=== PATIENT | male | born 1970 | race Caucasian/White ===

== ENCOUNTER → 2018-09-06 14:12 | Outpatient (CLI) | payer BC, SELFPAY ==
[2018-09-06 14:19] LABS: Basophils % 0.4 % (0.1-2.0); Eosinophils # 0.2 K/mm3 (0.0-0.4); Eosinophils % 2.5 % (0.1-12.0); Hemoglobin 17.1 g/dL (14.1-18.0); Lymphocytes # 1.7 K/mm3 (0.7-4.5); Lymphocytes % 21.9 % (10-50); Mean Corpuscular HGB Conc 34.2 g/dL (31.8-35.4); Mean Corpuscular Hemoglobin 31.9 pg (27.0-31.2); Mean Corpuscular Volume 93.3 fl (80-94); Mean Platelet Volume 7.7 fl (7.4-10.4); Monocytes # 0.3 K/mm3 (0.1-1.0); Monocytes % 4.4 % (1.7-9.3); Neutrophils # 5.6 K/mm3 (1.8-7.8); Neutrophils % 70.9 % (37.0-80.0); Platelet Count 361 K/mm3 (142-424); Red Blood Count 5.37 M/mm3 (4.60-6.20); White Blood Count 7.9 K/mm3 (4.8-10.8)
[2018-09-06 15:32] LABS: Alanine Aminotransferase 19 U/L (12-78); Albumin Level 3.9 gm/dL (3.4-5.0); Albumin/Globulin Ratio 1.1 (1.1-1.8); Alkaline Phosphatase 162 U/L (46-116); Anion Gap 18.7 mEq/L (5-15); Aspartate Amino Transferase 15 U/L (15-37); Bilirubin,Total 0.3 mg/dL (0.2-1.0); Blood Urea Nitrogen 11 mg/dL (7-18); Calcium 9.5 mg/dL (8.5-10.1); Carbon Dioxide 24 mmol/L (21.0-32.0); Chloride 103 mmol/L (98-107); Chol/HDL Ratio 4.1 (1-3.5); Cholesterol 152 mg/dL (140-200); Creatinine,Serum 0.83 mg/dL (0.70-1.30); Estimated Glomerular Filt Rate 98 ml/min (>60); Free T4 (Free Thyroxine) 1.01 ng/dl (0.76-1.46); GFR (African American) 119 ML/MIN (>60); Globulin 3.4 gm/dl (1.3-3.2); Glucose 84 mg/dL (74-106); HDL Cholesterol 37 mg/dL (27-67); LDL Cholesterol 99 mg/dL (0-130); Potassium 4.7 mmoL/L (3.5-5.1); Sodium 141 mmol/L (136-145); Thyroid Stimulating Hormone 1.03 uIU/ml (0.358-3.740); Total Protein,Serum 7.3 gm/dL (6.4-8.2); Triglycerides 78 mg/dL (30-200); VLDL Cholesterol 16 mg/dL (0-40)
== END ==
PROVIDERS: Visit Provider Emergency Medicine
DX: R53.83 Other fatigue (principal); Z72.0 Tobacco use
CPT/HCPCS: 80053; 80061; 82652; 84439; 84443; 85025

== ENCOUNTER → 2019-01-10 13:26 | Outpatient (CLI) | payer BC, SELFPAY ==
[2019-01-10 14:26] LABS: Basophils % 0.4 % (0.1-2.0); Eosinophils # 0.3 K/mm3 (0.0-0.4); Eosinophils % 4.2 % (0.1-12.0); Hematocrit 51.3 % (42.0-52.0); Hemoglobin 16.5 g/dL (14.1-18.0); Lymphocytes # 1.7 K/mm3 (0.7-4.5); Mean Corpuscular HGB Conc 32.2 g/dL (31.8-35.4); Mean Corpuscular Volume 96.5 fl (80-94); Mean Platelet Volume 7.9 fl (7.4-10.4); Monocytes # 0.3 K/mm3 (0.1-1.0); Monocytes % 4.8 % (1.7-9.3); Neutrophils # 3.9 K/mm3 (1.8-7.8); Neutrophils % 63.5 % (37.0-80.0); Platelet Count 325 K/mm3 (142-424); Red Blood Count 5.31 M/mm3 (4.60-6.20); Red Cell Distribution Width 13.2 % (11.5-17.5); White Blood Count 6.2 K/mm3 (4.8-10.8)
[2019-01-10 14:34] LABS: Alanine Aminotransferase 22 U/L (12-78); Albumin Level 3.7 gm/dL (3.4-5.0); Albumin/Globulin Ratio 1.2 (1.1-1.8); Alkaline Phosphatase 148 U/L (46-116); Anion Gap 14.1 mEq/L (5-15); Aspartate Amino Transferase 15 U/L (15-37); Bilirubin,Total 0.4 mg/dL (0.2-1.0); Blood Urea Nitrogen 14 mg/dL (7-18); Calcium 9.1 mg/dL (8.5-10.1); Carbon Dioxide 24 mmol/L (21.0-32.0); Chloride 103 mmol/L (98-107); Chol/HDL Ratio 4.2 (1-3.5); Cholesterol 160 mg/dL (140-200); Creatinine,Serum 0.83 mg/dL (0.70-1.30); Estimated Glomerular Filt Rate 98 ml/min (>60); GFR (African American) 119 ML/MIN (>60); Globulin 3.1 gm/dl (1.3-3.2); Glucose 89 mg/dL (74-106); HDL Cholesterol 38 mg/dL (27-67); LDL Cholesterol 102 mg/dL (0-130); Potassium 4.1 mmoL/L (3.5-5.1); Sodium 137 mmol/L (136-145); T4 (Thyroxine) 7.9 ug/dl (4.7-13.3); Thyroid Stimulating Hormone 1.18 uIU/ml (0.358-3.740); Total Protein,Serum 6.8 gm/dL (6.4-8.2); Triglycerides 101 mg/dL (30-200); VLDL Cholesterol 20 mg/dL (0-40)
== END ==
PROVIDERS: Visit Provider Physician Assistant
DX: I10 Essential (primary) hypertension (principal); E55.9 Vitamin D deficiency, unspecified; J44.9 Chronic obstructive pulmonary disease, unspecified
CPT/HCPCS: 80053; 80061; 82652; 84436; 84443; 85025

== ENCOUNTER → 2019-01-14 13:34 | Outpatient (CLI) | payer BC, SELFPAY ==
[2019-01-14 14:45] VITALS: PULSE 63; PULSE 64
== END ==
PROVIDERS: PCP Emergency Medicine; Visit Provider Physician Assistant
DX: J44.9 Chronic obstructive pulmonary disease, unspecified (principal)
CPT/HCPCS: 94060; 94618; 94640; 94726; 94729

== ENCOUNTER → 2019-07-06 13:31 | Outpatient (CLI) | payer BC, SELFPAY ==
[2019-07-06 14:56] LABS: Basophils % 0.3 % (0.1-2.0); Eosinophils # 0.2 K/mm3 (0.0-0.4); Eosinophils % 2.4 % (0.1-12.0); Hematocrit 50.4 % (42.0-52.0); Hemoglobin 16.4 g/dL (14.1-18.0); Lymphocytes # 1.8 K/mm3 (0.7-4.5); Lymphocytes % 29.8 % (10-50); Mean Corpuscular HGB Conc 32.6 g/dL (31.8-35.4); Mean Corpuscular Hemoglobin 30.9 pg (27.0-31.2); Mean Corpuscular Volume 94.7 fl (80-94); Mean Platelet Volume 8.8 fl (7.4-10.4); Monocytes # 0.3 K/mm3 (0.1-1.0); Monocytes % 4.9 % (1.7-9.3); Neutrophils # 3.8 K/mm3 (1.8-7.8); Neutrophils % 62.6 % (37.0-80.0); Platelet Count 328 K/mm3 (142-424); Red Blood Count 5.32 M/mm3 (4.60-6.20); Red Cell Distribution Width 13.4 % (11.5-17.5)
[2019-07-06 15:47] LABS: Alanine Aminotransferase 14 U/L (12-78); Albumin Level 4.2 gm/dL (3.4-5.0); Albumin/Globulin Ratio 1.5 (1.1-1.8); Alkaline Phosphatase 134 U/L (46-116); Anion Gap 16.5 mEq/L (5-15); Aspartate Amino Transferase 12 U/L (15-37); Bilirubin,Total 0.6 mg/dL (0.2-1.0); Blood Urea Nitrogen 11 mg/dL (7-18); Calcium 9.4 mg/dL (8.5-10.1); Carbon Dioxide 23 mmol/L (21.0-32.0); Chloride 104 mmol/L (98-107); Cholesterol 176 mg/dL (140-200); Creatinine,Serum 0.86 mg/dL (0.70-1.30); Estimated Glomerular Filt Rate 94 ml/min (>60); GFR (African American) 113 ML/MIN (>60); Globulin 2.8 gm/dl (1.3-3.2); Glucose 90 mg/dL (74-106); HDL Cholesterol 44 mg/dL (27-67); LDL Cholesterol 119 mg/dL (0-130); Potassium 4.5 mmoL/L (3.5-5.1); Sodium 139 mmol/L (136-145); T4 (Thyroxine) 9.5 ug/dl (4.7-13.3); Thyroid Stimulating Hormone 1.09 uIU/ml (0.358-3.740); Triglycerides 65 mg/dL (30-200); VLDL Cholesterol 13 mg/dL (0-40)
[2019-07-08 06:28] LABS: Vitamin D 25 Hydroxy 50.2 ng/mL (30.0-100.0)
== END ==
PROVIDERS: Visit Provider Physician Assistant
DX: I10 Essential (primary) hypertension (principal); E55.9 Vitamin D deficiency, unspecified
CPT/HCPCS: 80053; 80061; 82652; 84436; 84443; 85025

== ENCOUNTER → 2020-03-30 16:40 | Outpatient (CLI) | payer BC, SELFPAY ==
[2020-03-30 16:54] LABS: Basophils % 0.7 % (0.1-2.0); Eosinophils # 0.2 K/mm3 (0.0-0.4); Eosinophils % 2.9 % (0.1-12.0); Hematocrit 49.5 % (42.0-52.0); Hemoglobin 16.5 g/dL (14.1-18.0); Lymphocytes # 1.6 K/mm3 (0.7-4.5); Lymphocytes % 26.6 % (10-50); Mean Corpuscular HGB Conc 33.2 g/dL (31.8-35.4); Mean Corpuscular Hemoglobin 32.1 pg (27.0-31.2); Mean Corpuscular Volume 96.6 fl (80-94); Mean Platelet Volume 8.4 fl (7.4-10.4); Monocytes # 0.3 K/mm3 (0.1-1.0); Monocytes % 5.2 % (1.7-9.3); Neutrophils # 3.8 K/mm3 (1.8-7.8); Neutrophils % 64.5 % (37.0-80.0); Platelet Count 297 K/mm3 (142-424); Red Blood Count 5.13 M/mm3 (4.60-6.20); Red Cell Distribution Width 12.6 % (11.5-17.5); White Blood Count 5.9 K/mm3 (4.8-10.8)
[2020-03-30 17:53] LABS: Chloride 104 mmol/L (98-107)
[2020-03-30 17:54] LABS: Potassium 4.4 mmoL/L (3.5-5.1); Sodium 138 mmol/L (136-145)
[2020-03-30 17:57] LABS: Calcium 9.9 mg/dl (8.4-10.2); Chol/HDL Ratio 3.5 (1-3.5); Cholesterol 159 mg/dl (140-200); Glucose 99 mg/dl (74-100); HDL Cholesterol 46 mg/dl (40-60); Triglycerides 54 mg/dl (30-150); VLDL Cholesterol 11 mg/dL (0-40)
[2020-03-30 18:10] LABS: Direct LDL Cholesterol 108.44 mg/dL (100-129)
[2020-03-30 18:14] LABS: 25-OH Vitamin D, Total 66.4 ng/mL (30-100); Free T4 (Free Thyroxine) 1.21 ng/dl (0.78-2.19)
[2020-03-30 18:28] LABS: Thyroid Stimulating Hormone 0.89 uIU/mL (0.465-4.68)
[2020-03-30 19:28] LABS: Alanine Aminotransferase 18 U/L (12-78); Albumin Level 4.4 g/dl (3.5-5.0); Albumin/Globulin Ratio 1.6 (1.1-1.8); Alkaline Phosphatase 147 U/L (38-126); Anion Gap 11.4 mEq/L (5-15); Aspartate Amino Transferase 47 U/L (17-59); Bilirubin,Total 0.6 mg/dl (0.2-1.3); Blood Urea Nitrogen 15 mg/dl (9-20); Carbon Dioxide 27 mmol/L (22.0-30.0); Estimated Glomerular Filt Rate 102 ml/min (>60); GFR (African American) 123 ML/MIN (>60); Globulin 2.8 g/dL (1.3-3.2); Total Protein,Serum 7.2 g/dl (6.3-8.2)
== END ==
PROVIDERS: Visit Provider Emergency Medicine
DX: I10 Essential (primary) hypertension (principal); E55.9 Vitamin D deficiency, unspecified; Z79.899 Other long term (current) drug therapy; Z12.5 Encounter for screening for malignant neoplasm of prostate
CPT/HCPCS: 80053; 80061; 82306; 84439; 84443; 85025; G0103

== ENCOUNTER → 2020-11-27 14:13 | Outpatient (CLI) | payer BC, SELFPAY ==
[2020-11-27 14:20] LABS: Basophils % 0.6 % (0.1-2.0); Eosinophils # 0.1 K/mm3 (0.0-0.4); Eosinophils % 2.2 % (0.1-12.0); Hematocrit 49.4 % (42.0-52.0); Lymphocytes # 1.6 K/mm3 (0.7-4.5); Lymphocytes % 29.9 % (10-50); Mean Corpuscular HGB Conc 34.5 g/dL (31.8-35.4); Mean Corpuscular Hemoglobin 32.1 pg (27.0-31.2); Mean Platelet Volume 8.7 fl (7.4-10.4); Monocytes # 0.3 K/mm3 (0.1-1.0); Monocytes % 5.3 % (1.7-9.3); Neutrophils # 3.4 K/mm3 (1.8-7.8); Neutrophils % 62.1 % (37.0-80.0); Platelet Count 248 K/mm3 (142-424); Red Blood Count 5.31 M/mm3 (4.60-6.20); White Blood Count 5.5 K/mm3 (4.8-10.8)
[2020-11-27 15:32] LABS: Chloride 104 mmol/L (98-107); Sodium 137 mmol/L (136-145)
[2020-11-27 15:33] LABS: Potassium 4.4 mmoL/L (3.5-5.1)
[2020-11-27 15:35] LABS: Alanine Aminotransferase 17 U/L (12-78); Albumin Level 4.7 g/dl (3.5-5.0); Albumin/Globulin Ratio 1.7 (1.1-1.8); Alkaline Phosphatase 143 U/L (38-126); Anion Gap 14.4 mEq/L (5-15); Aspartate Amino Transferase 25 U/L (17-59); Bilirubin,Total 0.7 mg/dl (0.2-1.3); Blood Urea Nitrogen 11 mg/dl (9-20); Carbon Dioxide 23 mmol/L (22.0-30.0); Cholesterol 168 mg/dl (140-200); Estimated Glomerular Filt Rate 102 ml/min (>60); GFR (African American) 123 ML/MIN (>60); Globulin 2.8 g/dL (1.3-3.2); Total Protein,Serum 7.5 g/dl (6.3-8.2); Triglycerides 112 mg/dl (30-150); VLDL Cholesterol 22 mg/dL (0-40)
[2020-11-27 15:36] LABS: Calcium 9.5 mg/dl (8.4-10.2); Chol/HDL Ratio 3.8 (1-3.5); Glucose 112 mg/dl (74-100); HDL Cholesterol 44 mg/dl (40-60)
[2020-11-27 15:49] LABS: Direct LDL Cholesterol 112.58 mg/dL (100-129)
[2020-11-27 15:53] LABS: 25-OH Vitamin D, Total 31.6 ng/mL (30-100); T4 (Thyroxine) 8.9 ug/dl (5.53-11.0)
[2020-11-27 16:06] LABS: Thyroid Stimulating Hormone 1.04 uIU/mL (0.465-4.68)
== END ==
PROVIDERS: Visit Provider Emergency Medicine
DX: I10 Essential (primary) hypertension (principal); E55.9 Vitamin D deficiency, unspecified; E56.9 Vitamin deficiency, unspecified; Z79.899 Other long term (current) drug therapy
CPT/HCPCS: 80053; 80061; 82306; 84436; 84443; 85025

== ENCOUNTER → 2021-06-03 14:37 | Outpatient (CLI) | payer BC, SELFPAY ==
[2021-06-03 16:12] LABS: Coronavirus 19, PCR Not Detected (NotDetected); Influenza A, PCR Not Detected (NotDetected); Influenza B, PCR Not Detected (NotDetected)
== END ==
PROVIDERS: Visit Provider Emergency Medicine
DX: Z20.822 Contact with and (suspected) exposure to COVID-19 (principal); R05.9 Cough, unspecified; R09.89 Other specified symptoms and signs involving the circulatory and respiratory systems
CPT/HCPCS: C9803; U0003; U0005

== ENCOUNTER → 2021-06-11 10:42 | Outpatient (CLI) | payer BC, SELFPAY ==
--- NOTE | 2021-06-11 10:47 | XR_ITS ---
PROCEDURE: XR CHEST 2V CLINICAL HISTORY: COPD /shortness of breath COMPARISON: No exams were available for comparison FINDINGS: The cardiomediastinal silhouette and pulmonary vascularity are within normal limits. COPD changes. Old granulomatous disease. No lobar consolidation or collapse. No acute bony abnormalities. IMPRESSION: COPD. No acute finding Dictated by: Mart Flores MD 06/11/2021 14:04 Mart Flores MD in OV 06/11/2021 14:04
== END ==
PROVIDERS: PCP Emergency Medicine; Visit Provider Emergency Medicine
DX: J44.9 Chronic obstructive pulmonary disease, unspecified (principal)
CPT/HCPCS: 71046

== ENCOUNTER 2021-06-15 11:37 | Emergency (ER) | payer BC, SELFPAY ==
[2021-06-15 12:42] VITALS: BP 122/79; PULSE 79; RESP 18; TEMP 36.6; O2SAT 95; BMI 24.2
--- NOTE | 2021-06-15 13:38 | HMH.EDUTC ---
[facility] [place] Disposition Clinical Impression: COPD exacerbation Disposition: Home, Self-Care Condition on Discharge: Good Instructions: Chronic Obstructive Pulmonary Disease Additional Instructions: Drink plenty of fluids. Take tylenol or ibuprofen for pain or fever. Take the medications as directed. Follow up with your regular doctor. GO TO THE ER FOR ANY WORSENING SYMPTOMS Don't start the oral steroids until tomorrow, since you had the shot here today. The cough medication (promethazine dm) will make you drowsy, so don't drive or operate heavy machinery after taking it. Prescriptions: Promethazine/Dextromethorphan [Promethazine-Dm Syrup] 5 ml PO Q6HP PRN #240 ml PRN Reason: Cough Transmission Status: Received by [facility] Ondansetron [Zofran 4mg ODT] 4 mg PO Q8HP PRN #20 tab PRN Reason: Nausea Transmission Status: Received by [email or web address] Amoxicillin/Potassium Clav [Augmentin 875-125 Tablet] 1 tab PO Q12H 10 Days #20 tab Transmission Status: Received by [facility] Referrals: Marco Antonio Santamaria MD [Primary Care Provider] - Time of Disposition: 14:18 Medical Decision Making - Medical Records Medical records reviewed: No: I reviewed the patient's medical records. - Sánchez Inquiry Pt receiving controlled substance: No Vital Signs: 06/15/21 12:42 06/15/21 13:59 Temperature 97.8 F 97.8 F Temperature Source Oral Pulse Rate 79 Pulse Rate [Left] 79 Respiratory Rate 18 18 Blood Pressure 122/79 Blood Pressure [Right Arm] 122/79 Blood Pressure Mean [Right Arm] 93 02 Sat by Pulse Oximetry 95 - Lab Data Lab results reviewed: Yes: I reviewed the patient's lab results. Lab Results 06/15/21 14:19: Chlamy pneumoniae PCR Not detected, Adenovirus (PCR) Not detected, B. pertussis DNA (PCR) Not detected, Coronavirus OC43 (PCR) Not detected, Coronavirus HKU1 (PCR) Not detected, Coronavirus 229E (PCR) Not detected, SARS-CoV-2 (PCR) Not detected, Coronavirus NL63 (PCR) Not detected, Human Metapneumovir PCR Not detected, Influenza A (H1) PCR Not detected, Influ A (H1N1/09) PCR Not detected, Influenza A (H3) PCR Not detected, Influenza Type A (PCR) Not detected, Influenza Type B (PCR) Not detected, M. pneumoniae (PCR) Not detected, Parainfluenza 1 (PCR) Not detected, Parainfluenza 2 (PCR) Not detected, Parainfluenza 3 (PCR) Not detected, Parainfluenza 4 (PCR) Not detected, RSV (PCR) Not detected, Entero/Rhino (PCR) Detected A Orders (Tests/Meds): ED MEDICATIONS Discontinued Medications Generic Name Dose Route Start Last Admin Trade Name Ellen PRN Reason Stop Dose Admin Ceftriaxone Sodium 1 gm 06/15/21 13:49 06/15/21 13:59 Ceftriaxone 1gm Vial IM 06/15/21 13:50 1 gm ONCE ONE Administration Lidocaine HCl 0 ml 06/15/21 13:49 06/15/21 13:58 Lidocaine 1% 5ml Pf Vial IM 06/15/21 13:50 2 ml ONCE ONE Administration Methylprednisolone Sodium Succinate 125 mg 06/15/21 13:49 06/15/21 13:59 Methylprednisolone Sod Succ 125mg Vial IM 06/15/21 13:50 125 mg ONCE ONE Administration [facility] [place] HPI - General Stated complaint: stomach pain, vomiting Time Seen by Provider: 06/15/21 13:38 Mode of Arrival: Ambulatory Source of Information: Patient Limitations: No Limitations Description of Symptoms (Recalled from Triage Doc. by RN): pt states he has been sick for three weeks. pt states he has seen Dr. Santamaria and ruled out bronchitis, flu, covid and pneumonia. pt states he has n/v, pressure in his ears, heart burn and is unable to keep anything down. HEENT Symptoms (Recalled from RN notes): Yes (pressure in his ears) Resp Symptoms (Recalled from RN notes): No Skin Symptoms (Recalled from RN notes): No MS Symptoms (Recalled from RN notes): No Functional Status (Recalled from RN notes): wnl - History of Present Illness Provider Complaint: He c/o worsening shortness of breath and chest congestion. He has a history of copd. - Related Data H
[2021-06-15 13:59] VITALS: BP 122/79; PULSE 79; RESP 18; TEMP 36.6
[2021-06-15 15:26] LABS: Adenovirus,PCR Not Detected (NotDetected); Bordetella Pertussis Not Detected (NotDetected); Chlamydophila Pneumoniae, PCR Not Detected (NotDetected); Coronavirus 19, PCR Not Detected (NotDetected); Coronavirus 229E Not Detected (NotDetected); Coronavirus NL63 Not Detected (NotDetected); Coronavirus OC43 Not Detected (NotDetected); Coronovirus HKU1,PCR Not Detected (NotDetected); Human Metapneumovirus Not Detected (NotDetected); Influenza A, PCR Not Detected (NotDetected); Influenza AH1, 2009 Not Detected (NotDetected); Influenza AH1, PCR Not Detected (NotDetected); Influenza AH3,PCR Not Detected (NotDetected); Influenza B, PCR Not Detected (NotDetected); Mycoplasma Pneumoniae, PCR Not Detected (NotDetected); Parainfluenza 1, PCR Not Detected (NotDetected); Parainfluenza 2, PCR Not Detected (NotDetected); Parainfluenza 3, PCR Not Detected (NotDetected); Parainfluenza 4, PCR Not Detected (NotDetected); Respiratory Syncytial Virus Not Detected (NotDetected)
[2021-06-15 17:28] LABS: Rhinovirus/Enterovirus Detected (NotDetected)
== END 2021-06-15 14:29 | disposition home or self-care (01) ==
PROVIDERS: Emergency Provider Nurse Practitioner Family; PCP Emergency Medicine
DX: J44.1 Chronic obstructive pulmonary disease with (acute) exacerbation (principal); I10 Essential (primary) hypertension; F17.210 Nicotine dependence, cigarettes, uncomplicated
CPT/HCPCS: 87581; 87632; 87798; 96372; 99202; C9803; G0463; U0003; U0005

== ENCOUNTER → 2021-07-19 14:21 | Outpatient (CLI) | payer BC, SELFPAY ==
[2021-07-19 16:40] LABS: Amphetamine/Metha Screen,Urine Negative ng/ml (<1000)
[2021-07-19 16:41] LABS: Barbiturates Screen,Urine Negative ng/ml (<200); Benzodiazepines Screen,Urine Negative ng/ml (<200)
[2021-07-19 16:42] LABS: Cannabinoid Screen,Urine Negative ng/ml (<50)
[2021-07-19 16:43] LABS: Cocaine Screen,Urine Negative ng/ml (<300); Methadone Screen,Urine Negative ng/ml (<300)
[2021-07-19 16:44] LABS: Opiate Screen,Urine Negative ng/ml (<300)
[2021-07-19 16:45] LABS: Phencyclidine Screen,Urine Negative ng/ml (<25)
== END ==
PROVIDERS: Visit Provider Emergency Medicine
DX: Z79.899 Other long term (current) drug therapy (principal)
CPT/HCPCS: 80305

== ENCOUNTER → 2021-09-13 15:03 | Outpatient (CLI) | payer BC, SELFPAY ==
[2021-09-13 15:38] LABS: Amphetamine/Metha Screen,Urine Negative ng/ml (<1000); Cannabinoid Screen,Urine Negative ng/ml (<50)
[2021-09-13 15:39] LABS: Barbiturates Screen,Urine Negative ng/ml (<200)
[2021-09-13 15:40] LABS: Benzodiazepines Screen,Urine Negative ng/ml (<200); Cocaine Screen,Urine Negative ng/ml (<300)
[2021-09-13 15:41] LABS: Methadone Screen,Urine Negative ng/ml (<300)
[2021-09-13 15:42] LABS: Opiate Screen,Urine Negative ng/ml (<300)
[2021-09-13 15:49] LABS: Phencyclidine Screen,Urine Negative ng/ml (<25)
== END ==
PROVIDERS: Visit Provider Emergency Medicine
DX: Z79.899 Other long term (current) drug therapy (principal)
CPT/HCPCS: 80305

== ENCOUNTER → 2021-11-11 10:53 | Outpatient (CLI) | payer BC, SELFPAY ==
[2021-11-11 14:55] LABS: Amphetamine/Metha Screen,Urine Negative ng/ml (<1000)
[2021-11-11 14:56] LABS: Barbiturates Screen,Urine Negative ng/ml (<200); Benzodiazepines Screen,Urine Negative ng/ml (<200)
[2021-11-11 14:57] LABS: Cannabinoid Screen,Urine Negative ng/ml (<50)
[2021-11-11 14:58] LABS: Cocaine Screen,Urine Negative ng/ml (<300); Methadone Screen,Urine Negative ng/ml (<300)
[2021-11-11 14:59] LABS: Opiate Screen,Urine Negative ng/ml (<300)
[2021-11-11 15:00] LABS: Phencyclidine Screen,Urine Negative ng/ml (<25)
== END ==
PROVIDERS: PCP Emergency Medicine; Visit Provider Emergency Medicine
DX: Z79.899 Other long term (current) drug therapy (principal)
CPT/HCPCS: 80305

== ENCOUNTER → 2021-12-10 08:21 | Outpatient (CLI) | payer BC, SELFPAY | PROVIDERS: PCP Emergency Medicine; Visit Provider Surgery | DX: Z01.812 Encounter for preprocedural laboratory examination (principal); Z20.822 Contact with and (suspected) exposure to COVID-19; D48.5 Neoplasm of uncertain behavior of skin | CPT/HCPCS: C9803; U0003; U0005 ==

== ENCOUNTER 2021-12-12 06:08 | Day surgery (SDC) | payer BC, SELFPAY ==
[2021-12-10 13:03] VITALS: BMI 24.3
[2021-12-12 06:27] VITALS: BP 125/76; PULSE 53; RESP 18; TEMP 36.5; O2SAT 99
[2021-12-12 07:26] VITALS: BP 129/73; PULSE 51; RESP 18; TEMP 36.8; O2SAT 96
--- NOTE | 2021-12-12 07:26 | HMH.OPNOTE ---
Date of procedure: 12/12/21 Pre-op Diagnosis:: 1 cm skin neoplasm of uncertain behavior (left forehead) Post-op Diagnosis:: Same Procedure performed:: Excision of 1 cm left forehead skin lesion Surgeon:: Marcel Umana MD Anesthesia: local Estimated blood loss (mL): 5 Operative findings:: 1 mm margin obtained Operative note:: After informed consent was obtained the patient was taken to the procedure room and maintained in the supine position. His left forehead was prepped and draped in a sterile fashion. After infiltration local anesthetic an elliptical incision was made with scalpel around the lesion with a 1 mm margin. The deep subcutaneous tissue was dissected sharply with scalpel. The lesion was excised in toto and passed off for pathologic evaluation. Electrocautery was utilized to achieve hemostasis. Skin was reapproximated with running 6-0 nylon. Dressings were applied and the patient was discharged in stable condition. Condition: stable Disposition: no change Specimens:: Left forehead skin lesion Complications:: No immediate
[2021-12-12 07:36] VITALS: BP 129/73; PULSE 51; RESP 18; O2SAT 96
== END 2021-12-12 07:37 | disposition home or self-care (01) ==
LOC: OUTP 06:10
PROVIDERS: PCP Emergency Medicine; Visit Provider Surgery
PROC: (CPT 11441; principal; 2021-12-12 07:00)
DX: L82.0 Inflamed seborrheic keratosis (principal); J44.9 Chronic obstructive pulmonary disease, unspecified; I10 Essential (primary) hypertension; Z72.0 Tobacco use
CPT/HCPCS: 11441

== ENCOUNTER → 2022-01-06 14:14 | Outpatient (CLI) | payer BC, SELFPAY ==
[2022-01-06 13:49] LABS: Amphetamine/Metha Screen,Urine Negative ng/ml (<1000); Barbiturates Screen,Urine Negative ng/ml (<200)
[2022-01-06 13:50] LABS: Benzodiazepines Screen,Urine Negative ng/ml (<200)
[2022-01-06 13:51] LABS: Cannabinoid Screen,Urine Negative ng/ml (<50); Cocaine Screen,Urine Negative ng/ml (<300)
[2022-01-06 13:52] LABS: Methadone Screen,Urine Negative ng/ml (<300)
[2022-01-06 13:57] LABS: Phencyclidine Screen,Urine Negative ng/ml (<25)
[2022-01-06 13:58] LABS: Opiate Screen,Urine Negative ng/ml (<300)
== END ==
PROVIDERS: PCP Emergency Medicine; Visit Provider Emergency Medicine
DX: M54.50 Low back pain, unspecified (principal)
CPT/HCPCS: 80305

== ENCOUNTER → 2022-02-06 11:27 | Outpatient (CLI) | payer BC, SELFPAY ==
[2022-02-06 12:19] LABS: Basophils # 0.1 K/mm3 (0-0.2); Basophils % 1.4 % (0.1-2.0); Eosinophils # 0.2 K/mm3 (0.0-0.4); Hematocrit 51.2 % (42.0-52.0); Hemoglobin 16.2 g/dL (14.1-18.0); Lymphocytes % 28.8 % (10-50); Mean Corpuscular HGB Conc 31.7 g/dL (31.8-35.4); Mean Corpuscular Hemoglobin 31.8 pg (27.0-31.2); Mean Corpuscular Volume 100.4 fl (80-94); Mean Platelet Volume 7.1 fl (7.4-10.4); Monocytes # 0.4 K/mm3 (0.1-1.0); Monocytes % 5.8 % (1.7-9.3); Neutrophils # 4.2 K/mm3 (1.8-7.8); Neutrophils % 60.9 % (37.0-80.0); Platelet Count 299 K/mm3 (142-424); Red Cell Distribution Width 13.4 % (11.5-17.5); White Blood Count 6.9 K/mm3 (4.8-10.8)
[2022-02-06 12:37] LABS: Alanine Aminotransferase 20 U/L (12-78); Albumin Level 4.2 g/dl (3.5-5.0); Alkaline Phosphatase 141 U/L (38-126); Aspartate Amino Transferase 27 U/L (17-59); Bilirubin,Direct 0.3 mg/dl (0.0-0.4); Bilirubin,Indirect 0.3 mg/dL (0.0-0.9); Bilirubin,Total 0.6 mg/dl (0.2-1.3); Bilirubin,Unconjugated 0.3 mg/dL (0.0-1.1); Blood Urea Nitrogen 13 mg/dl (9-20); Calcium 9.7 mg/dl (8.4-10.2); Carbon Dioxide 23 mmol/L (22.0-30.0); Chloride 107 mmol/L (98-107); Chol/HDL Ratio 4.4 (1-3.5); Cholesterol 184 mg/dl (140-200); Estimated Glomerular Filt Rate 101 ml/min (>60); GFR (African American) 122 ML/MIN (>60); Glucose 95 mg/dl (74-100); HDL Cholesterol 42 mg/dl (40-60); Sodium 137 mmol/L (136-145); Total Protein,Serum 6.8 g/dl (6.3-8.2); Triglycerides 97 mg/dl (30-150); VLDL Cholesterol 19 mg/dL (0-40)
[2022-02-06 13:04] LABS: Troponin I < 0.01 ng/ml (0.00-0.034)
[2022-02-06 13:09] LABS: Thyroid Stimulating Hormone 0.58 uIU/mL (0.465-4.68)
[2022-02-06 14:06] LABS: Anion Gap 11.3 mEq/L (5-15); Potassium 4.3 mmoL/L (3.5-5.1)
[2022-02-11 04:58] LABS: Direct LDL Cholesterol 114 mg/dL (100-129)
== END ==
PROVIDERS: PCP Emergency Medicine; Visit Provider Nurse Practitioner Family
DX: R06.02 Shortness of breath (principal); R42 Dizziness and giddiness; I10 Essential (primary) hypertension; R94.31 Abnormal electrocardiogram [ECG] [EKG]
CPT/HCPCS: 36415; 80048; 80061; 80076; 84439; 84443; 84484; 85025; 93270

== ENCOUNTER → 2022-02-10 12:39 | Outpatient (CLI) | payer BC, SELFPAY ==
[2022-02-10 14:59] LABS: Vitamin B12 412 pg/mL (239-931)
[2022-02-10 15:01] LABS: Folate 6.78 ng/mL
[2022-02-17 10:12] LABS: 1,25 Dihydroxy Vitamin D 33 pg/mL (.); 1,25-Dihydroxy, Vitamin D-2 <10 pg/mL (.); 1,25-Dihydroxy, Vitamin D-3 31 pg/mL (.)
== END ==
PROVIDERS: PCP Emergency Medicine; Visit Provider Internal Medicine
DX: R06.09 Other forms of dyspnea (principal); R55 Syncope and collapse; R00.1 Bradycardia, unspecified; R94.31 Abnormal electrocardiogram [ECG] [EKG]; Z72.0 Tobacco use
CPT/HCPCS: 36415; 82607; 82652; 82746

== ENCOUNTER → 2022-02-12 06:29 | Outpatient (CLI) | payer BC, SELFPAY ==
--- NOTE | 2022-02-12 06:30 | NM_ITS ---
APPROVED REPORT Exam: Nuclear Stress Test Indication: SOB, Dizziness, HTN, Tobacco use, Family history Patient Location: Outpatient Stress Tech: Inessa Canela [place] Tech:Thelma Aleman, ARRT, RT (R)(N) Ht: 5 ft 7 in Wt: 152 lbs HR: 65 bpm BP: 129/90 mmHg BSA: 1.80 m2 TID: 1.20 BMI: 23.8 History: SOB, Dizziness, HTN, Tobacco use, Family history Procedure: Patient received a 0.4 mg of intravenous Lexiscan, resting heart rate 65 bpm, resting blood pressure 129/90 mmHg, with Lexiscan maximum heart rate achived was Less than 85 bpm which is % of the maximum predicted heart rate and blood pressure was 143/72 mmHg. With Lexiscan, patient denied any complaint of chest pain. Electrocardiogram Resting electrocardiogram shows sinus rhythm, with Lexiscan there is less than 1.[address] segment depression noted from the baseline EKG. The EKG portion of the Lexiscan is nondiagnostic. Cardiac Stress and Resting SPECT Images: Cardiac Stress and Resting SPECT images were obtained using technetium 99m Myoview 30.0 mCi stress and 10.70 mCi at rest. Gated SPECT for analysis of segmental wall motion and calculation of the ejection fraction also done. Prone images were also obtained. Cardiac stress and rest SPECT images show uniform myocardial activity without segmental perfusion abnormality, computer derived ejection fraction is 64% with no regional wall motion abnormality, right ventricle is normal size and contractility. Conclusion: 1. The EKG portion of the Lexiscan is nondiagnostic. 2. No scintigraphic evidence of reversible ischemia seen, computer derived ejection fraction is 64% with no regional wall motion abnormality, right ventricle is normal size and contractility. 3. Normal Lexiscan Myoview study. Electronically signed by : Brennan Otero MD 02/13/2022 06:47:27
--- NOTE | 2022-02-12 06:30 | CA_ITS ---
APPROVED REPORT EXAM: Comprehensive 2D, Doppler, and color-flow Echocardiogram Tube Puller: SONJA Monzon, RVS Ht: 5 ft 7 in Wt: 152lbs BSA: 1.80 BP: 136/86 mmHg Indications: Syncope, Bradycardia, Dizziness, SOA, Smoker 2D Dimensions Aortic Root 3.14 cm LA Volume 41.00 mL Left Atrium 2.82 cm LA Volume Index 22.80 mL/m2 (M/F) 16-34 LVOT 2.07 cm (M/F) 1.5-2.5 M-Mode Dimensions RVDd 2.46 cm (0.9-2.6) LA Diam 2.69 cm (1.9-4.0) LVDd 5.28 cm (3.5-5.7) Ao Diam 3.19 cm (2.0-3.7) LVDs 3.75 cm (3.5-5.7) IVSd 0.61 cm (0.6-1.1) PWd 0.71 cm (0.6-1.1) EF (Teich) 55.30% EPSs 0.32 cm FS 29.00% EDV (Teich) 134.20 mL TAPSE 2.63 (<1.7) ESV (Teich) 60.00 mL LV Diastology E Decel Time 373.00 (160-240 msec) E/A Ratio 1.42 MED E' 10.20 (< 7 cm/sec) MED A' 8.60 cm/s E'/MED E' Ratio 6.18 (>14) LAT E' 17.10 (<10 cm/sec) LAT A' 11.10 cm/s E/LAT E' Ratio 3.68 (>14) Aortic Valve LVOT Max 109.00 (70-110 cm/s) LVOT VTI 22.09 cm AoV Peak Augustus. 124.00 (50-130 cm/s) AO Peak GR. 6.10 mmHg AO Mean GR. 3.00 (<5 mmHg) AO VTI 25.25 (18-25 cm) HINA (VTI) 2.94 (2.5-4.5 cm2) Mitral Valve MV A Velocity 44.00 (40-130 cm/s) E/A Ratio 1.42 MV Decel. Time 373.00 (160-240 ms) MV Mean Gr. 1.10 (<2mmHg) MV PHT 60.00 ms Pulmonary Valve PV Peak Velocity 89.00 (50-150 cm/s) Left Ventricle Left atrium is normal size, left ventricle is normal size, there is no concentric left ventricular hypertrophy, estimated ejection fraction 55% with no regional wall motion abnormality, diastolic parameters are within normal range. Right Ventricle Right atrium and right ventricle are normal size and contractility. Aortic Valve Aortic valve is minimally thickened and fibrosed, leaflets are not well visualized. There is no aortic stenosis or aortic insufficiency. Mitral Valve Mitral valve grossly normal, there is trace mitral regurgitation. Tricuspid Valve Tricuspid valve grossly normal, there is trace tricuspid regurgitation, tricuspid regurgitation jet velocity is inadequate for calculation of the right ventricular systolic pressure. Pulmonic Valve Pulmonic valve is poorly visualized. Great Vessels Aortic root is normal size. Inferior vena cava is normal size with normal inspiratory collapse. Pericardium No significant pericardial effusion noted. Conclusion 1. Normal left ventricular size, preserved left ventricular systolic function, estimated ejection fraction 55% with no regional wall motion abnormality, diastolic parameters are within normal range. 2. Trace mitral and tricuspid regurgitation. 3. No significant pericardial effusion noted. 4. Inferior vena cava is normal size with normal inspiratory collapse. Electronically signed by : Brennan Otero MD 02/13/2022 06:28:00
--- NOTE | 2022-02-12 06:30 | CA_ITS ---
APPROVED REPORT Exam: Pharmacologic Technologist: Inessa Canela, Ht: 5 ft 7 in Wt: 152 lbs BSA: 1.80 m2 HR: 58 bpm BP: 129/90 mmHg Rhythm: SINUS PRESTON, RIGHTWARD AXIS, POOR R WAVE PROGRESSION Medical History Medical History: HTN Medications: Amlodipine,,,,, Asa,,,,, PERCOCET,,,,, Albuterol,,,,, Vit D3,,,,, Meclizine,,,,, FluTICASONE,,,,, Allergies: HYDROCODONE, SELDANE Cardiac Risk Factors: HTN Stress Test Details Test: LEXISCAN HR Resting HR: 65 bpm Max Heart Rate (APMHR): 167.793923 bpm Max HR Achieved: 98 bpm Target HR (85% APMHR): 141.900114 bpm % of APMHR: 58.68 Recovery HR: 74 bpm BP Resting BP: 129/90 mmHg Max BP: 143/72 mmHg Recovery BP: 143.0/72.0 mmHg ECG Resting ECG: SINUS PRESTON, RIGHTWARD AXIS, POOR R WAVE PROGRESSION Clinical Exercise duration: 04:00 min Highest Stage Achieved: Stress ECG Conclusion PT HAD SOA, AND HEAD DISCOMFORT. NO CP. NO SIGNIFICANT CHANGES. UNREMARKABLE LEXISCAN STRESS. MYOVIEW IMAGES REPORTED SEPARATELY. Electronically signed by : Brennan Otero MD 02/13/2022 06:44:35
--- NOTE | 2022-02-12 08:58 | HMH.ITSHM ---
Current Home Medications as stated by this patient Oscar Gamez SR or outside sales representative insurance. []OXYCODONE MECLIZINE FLUTICASONE AA VITAMIN D3 AMLODIPINE ALBUTEROL
== END ==
LOC: RAD 06:30
PROVIDERS: PCP Emergency Medicine; Visit Provider Nurse Practitioner Family
DX: R06.02 Shortness of breath (principal); R06.09 Other forms of dyspnea; R94.31 Abnormal electrocardiogram [ECG] [EKG]
CPT/HCPCS: 78452; 93017; 93306; A9502; J2785

== ENCOUNTER → 2022-02-17 12:33 | Outpatient (CLI) | payer BC, SELFPAY ==
[2022-02-17 13:40] VITALS: PULSE 52; PULSE 58
== END ==
PROVIDERS: PCP Emergency Medicine; Visit Provider Nurse Practitioner Family
DX: R06.02 Shortness of breath (principal)
CPT/HCPCS: 94060; 94618; 94640; 94726; 94729

== ENCOUNTER → 2022-02-19 09:27 | Outpatient (CLI) | payer BC, SELFPAY ==
--- NOTE | 2022-02-19 09:27 | CT_ITS ---
FINAL REPORT TECHNIQUE: Thin section axial CT with IV contrast supplemented with multiplanar reconstruction under CT angiogram protocol. 3-D reconstructions were performed. This study was performed with techniques to keep radiation doses as low as reasonably achievable (ALARA). Individualized dose reduction techniques using automated exposure control or adjustment of mA and/or kV according to the patient''s size were employed. CLINICAL HISTORY: syncope, DIZZINESS FINDINGS: The distal vertebral, basilar and distal internal carotid arteries have an unremarkable appearance. No aneurysm is seen. Major intracranial vessels are patent without significant stenosis. There is lobular mucoperiosteal thickening in the right maxillary sinus. IMPRESSION: There is no evidence of significant stenosis. Reviewed, Interpreted and Dictated by Edgar Miller MD Transcribed by Elsi Ruby Authenticated and [facility]
--- NOTE | 2022-02-19 09:27 | CT_ITS ---
FINAL REPORT TECHNIQUE: Thin section axial CT with IV contrast supplemented with multiplanar reconstruction under CT angiogram protocol. This study was performed with techniques to keep radiation doses as low as reasonably achievable (ALARA). Individualized dose reduction techniques using automated exposure control or adjustment of mA and/or kV according to the patient''s size were employed. NASCET criteria was utilized during interpretation. CLINICAL HISTORY: syncope/DIZZINESS FINDINGS: Aortic arch: Arch shows no significant narrowing. Great vessel origins are widely patent. Right carotid: No significant stenosis is seen of the cervical common or internal carotid artery. Left carotid: No significant stenosis is seen of the cervical common or internal carotid artery. Vertebral: No significant stenosis is present. There are moderate changes of centrilobular emphysema. IMPRESSION: There is no significant stenosis. Reviewed, Interpreted and Dictated by Edgar Miller MD Transcribed by Elsi Ruby Authenticated and [facility]
== END ==
PROVIDERS: PCP Emergency Medicine; Visit Provider Internal Medicine
DX: R06.09 Other forms of dyspnea (principal); R55 Syncope and collapse; R00.1 Bradycardia, unspecified; R94.31 Abnormal electrocardiogram [ECG] [EKG]; Z72.0 Tobacco use
CPT/HCPCS: 70496; 70498; Q9967

== ENCOUNTER → 2022-02-26 08:20 | Outpatient (CLI) | payer BC, SELFPAY | PROVIDERS: PCP Emergency Medicine; Visit Provider Internal Medicine | DX: Z01.812 Encounter for preprocedural laboratory examination (principal); Z20.822 Contact with and (suspected) exposure to COVID-19; R00.1 Bradycardia, unspecified; I10 Essential (primary) hypertension | CPT/HCPCS: C9803; U0003; U0005 ==

== ENCOUNTER 2022-02-27 07:01 | Day surgery (SDC) | payer BC, SELFPAY ==
[2022-02-27 07:17] VITALS: BMI 23.9
[2022-02-27 07:49] VITALS: BP 139/94; PULSE 53; RESP 16; TEMP 36.9; O2SAT 95
[2022-02-27 07:56] VITALS: PULSE 64
[2022-02-27 08:24] VITALS: BP 143/83; PULSE 55; RESP 17; O2SAT 97
[2022-02-27 08:26] VITALS: PULSE 72
--- NOTE | 2022-02-27 08:27 | EXP.LOOP ---
[facility] Loop Recorder Date: 02/27/22 Time: 08:15 Procedure Performed:: Implantation of Loop recorder Indication:: Bradycardia, symptomatic Technique:: Patient was brought to the cardiac Social Media Intern.? After informed consent obtained, 1% lidocaine with epinephrine was used to anesthetize the site along the left anterior aspect of the chest near the sternal border.? Using the preformed scalpel, an incision was made and using the supplied preloaded apparatus, the loop recorder was placed subcutaneously without difficulty.? Following the deployment of the loop recorder interrogation of the device was performed to ensure appropriate voltage was being detected.? Once this was verified, Steri-Strips were placed over the incision and the patient was prepped to discharge home.? Patient tolerated the procedure well with minimal discomfort. Impression:: Successful implantation of loop recorder Serial Number:: [employer] M301 Serial # [id number] Plan:: Routine postop care
== END 2022-02-27 08:30 | disposition home or self-care (01) ==
PROVIDERS: PCP Emergency Medicine; Visit Provider Internal Medicine
DX: R00.1 Bradycardia, unspecified (principal); R55 Syncope and collapse; R06.09 Other forms of dyspnea; R94.39 Abnormal result of other cardiovascular function study; J44.9 Chronic obstructive pulmonary disease, unspecified; I10 Essential (primary) hypertension; E56.9 Vitamin deficiency, unspecified; Z79.899 Other long term (current) drug therapy; F17.210 Nicotine dependence, cigarettes, uncomplicated
CPT/HCPCS: 33285

== ENCOUNTER → 2022-03-05 17:03 | Outpatient (CLI) | payer BC, SELFPAY ==
[2022-03-05 15:43] LABS: Amphetamine/Metha Screen,Urine Negative ng/ml (<1000)
[2022-03-05 15:44] LABS: Barbiturates Screen,Urine Negative ng/ml (<200); Benzodiazepines Screen,Urine Negative ng/ml (<200)
[2022-03-05 15:45] LABS: Cannabinoid Screen,Urine Negative ng/ml (<50)
[2022-03-05 15:46] LABS: Cocaine Screen,Urine Negative ng/ml (<300); Methadone Screen,Urine Negative ng/ml (<300)
[2022-03-05 15:47] LABS: Opiate Screen,Urine Negative ng/ml (<300)
[2022-03-05 15:48] LABS: Phencyclidine Screen,Urine Negative ng/ml (<25)
--- NOTE | 2022-03-18 10:20 | PC.NURSE ---
Talked with patient today about a home sleep study and he refused at this time.
== END ==
PROVIDERS: Visit Provider Emergency Medicine
DX: Z79.899 Other long term (current) drug therapy (principal)
CPT/HCPCS: 80305

== ENCOUNTER → 2022-04-30 15:00 | Outpatient (CLI) | payer BC, SELFPAY ==
[2022-04-30 15:34] LABS: MANUAL DIFFERENTIAL MANUAL DIFFERENTIAL (MANUAL DIFF)
[2022-04-30 16:42] LABS: Basophils # 0.1 K/mm3 (0-0.2); Basophils % 1.1 % (0.1-2.0); Eosinophils # 0.2 K/mm3 (0.0-0.4); Eosinophils % 1.7 % (0.1-12.0); Hematocrit 48.8 % (42.0-52.0); Hemoglobin 16.4 g/dL (14.1-18.0); Lymphocytes # 2.2 K/mm3 (0.7-4.5); Lymphocytes % 22.4 % (10-50); Mean Corpuscular HGB Conc 33.5 g/dL (31.8-35.4); Mean Corpuscular Hemoglobin 32.3 pg (27.0-31.2); Mean Corpuscular Volume 96.3 fl (80-94); Mean Platelet Volume 7.8 fl (7.4-10.4); Monocytes # 0.5 K/mm3 (0.1-1.0); Monocytes % 5.3 % (1.7-9.3); Neutrophils # 6.9 K/mm3 (1.8-7.8); Neutrophils % 69.5 % (37.0-80.0); Platelet Count 315 K/mm3 (142-424); Red Blood Count 5.06 M/mm3 (4.60-6.20); Red Cell Distribution Width 13.4 % (11.5-17.5); White Blood Count 9.9 K/mm3 (4.8-10.8)
[2022-04-30 17:29] LABS: Anion Gap 16.2 mEq/L (5-15); Blood Urea Nitrogen 17 mg/dl (9-20); Calcium 9.9 mg/dl (8.4-10.2); Carbon Dioxide 26 mmol/L (22.0-30.0); Chloride 101 mmol/L (98-107); Estimated Glomerular Filt Rate 88 ml/min (>60); GFR (African American) 107 ML/MIN (>60); Glucose 76 mg/dl (74-100); Potassium 4.2 mmoL/L (3.5-5.1); Sodium 139 mmol/L (136-145)
[2022-04-30 17:57] LABS: Eosinophils % 1 % (0-3); Lymphocytes % 18 % (10-50); Monocytes % 3 % (2-9); Neutrophils % 77 % (42-76); Total Cells Counted 100
[2022-04-30 17:58] LABS: Platelet Estimate Normal; Stomatocytes 1+; Tear Drop Cells 1+
[2022-05-08 17:53] LABS: Alpha-1-Antitrypsin 163 mg/dL (101-187)
== END ==
PROVIDERS: Internal Medicine; Internal Medicine Pulmonary Disease; PCP Emergency Medicine; Visit Provider Emergency Medicine
DX: I20.8 Other forms of angina pectoris (principal); J44.9 Chronic obstructive pulmonary disease, unspecified
CPT/HCPCS: 36415; 80048; 82103; 82104; 85007; 85014; 85018; 85048; 85049

== ENCOUNTER → 2022-04-30 15:10 | Outpatient (CLI) | payer BC, SELFPAY ==
[2022-04-30 14:30] LABS: Barbiturates Screen,Urine Negative ng/ml (<200); Benzodiazepines Screen,Urine Negative ng/ml (<200)
[2022-04-30 14:31] LABS: Amphetamine/Metha Screen,Urine Negative ng/ml (<1000); Methadone Screen,Urine Negative ng/ml (<300)
[2022-04-30 14:32] LABS: Cannabinoid Screen,Urine Negative ng/ml (<50)
[2022-04-30 14:33] LABS: Cocaine Screen,Urine Negative ng/ml (<300); Opiate Screen,Urine Negative ng/ml (<300)
[2022-04-30 14:34] LABS: Phencyclidine Screen,Urine Negative ng/ml (<25)
--- NOTE | 2022-04-30 15:10 | CT_ITS ---
FINAL REPORT CLINICAL HISTORY: lung cancer screening, 51-year-old with 30 pack-year smoking history FINDINGS: Low-Dose Chest CT Axial images were obtained from the lung apex to the mid abdomen by computed tomography. Low-dose protocol was utilized. CTDI vol (mGy): 2.90 DLP (mGy-cm): 111.51 A loop recorder is noted in the left anterior chest wall. There is no axillary adenopathy. There is no hilar or mediastinal adenopathy. The heart is proper size. There is no pericardial or pleural effusion. Lung window images demonstrate moderate changes of emphysema with mild pulmonary scarring. There is a calcified granuloma in the right lower lobe. There is a 6 mm nodule in the superior segment of the left lower lobe. Limited images of the upper abdomen are unremarkable. IMPRESSION: 6 mm nodule in the superior segment of the left lower lobe. Lung RADS category 3. Recommend 6 month follow-up low-dose chest CT. Reviewed, Interpreted and Dictated by Gab Abrams III, MD Transcribed by Lily Dowling Authenticated and [facility]
== END ==
PROVIDERS: Emergency Medicine; PCP Internal Medicine; Visit Provider Internal Medicine Pulmonary Disease
DX: Z79.899 Other long term (current) drug therapy (principal); Z87.891 Personal history of nicotine dependence; Z12.2 Encounter for screening for malignant neoplasm of respiratory organs
CPT/HCPCS: 71271; 80305

== ENCOUNTER 2022-05-02 08:48 | Day surgery (SDC) | payer BC, SELFPAY ==
[2022-05-02] VITALS (15 sets, daily range): BP systolic 103–167; BP diastolic 69–94; PULSE 50–94; RESP 16–18; TEMP 36.9; O2SAT 95–100; BMI 24.7
--- NOTE | 2022-05-02 07:24 | IR_ITS ---
APPROVED REPORT Patient Location: Outpatient [employer] Machine Mechanic: GM Mireles RT (R) PROCEDURES Left heart catheterization Left ventriculogram Selective coronary angiogram INDICATION Angina pectoris, Bradycardia, Sick sinus syndrome Informed consent was obtained prior to the procedure. COMPLICATIONS NONE Estimated Blood Loss: LESS THAN 10 ML TECHNIQUE One percent lidocaine used to anesthetize the right anterior aspect of the wrist. The right radial artery was accessed via the Seldinger technique. A 6 Welsh sheath was placed in the right radial artery. 2.5 mg of verapamil, 800 mcg of nitroglycerin, 1mg Lidocaine and 5000 U Heparin were given through the arterial sheath. The papa catheter was also used to perform left heart catheterization, left ventriculogram and selective coronary angiogram. At the end of the procedure the sheath was removed good hemostasis was achieved using Traclet band, patient was transferred to the postop holding area in stable condition. 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 Avoidance of tobacco 2. Treatment of endothelial dysfunction 3. Risk factor modification Electronically signed by : Mk Allen MD 05/02/2022 11:17:21
== END 2022-05-02 13:50 | disposition home or self-care (01) ==
PROVIDERS: PCP Emergency Medicine; Visit Provider Internal Medicine
DX: I49.5 Sick sinus syndrome (principal); I25.118 Atherosclerotic heart disease of native coronary artery with other forms of angina pectoris; J44.9 Chronic obstructive pulmonary disease, unspecified; I10 Essential (primary) hypertension; F17.210 Nicotine dependence, cigarettes, uncomplicated; I42.9 Cardiomyopathy, unspecified; R55 Syncope and collapse; R06.09 Other forms of dyspnea; R42 Dizziness and giddiness; R94.31 Abnormal electrocardiogram [ECG] [EKG]
CPT/HCPCS: 93458; 99152; C1725; C1769; J1644; Q9967

== ENCOUNTER 2022-05-07 17:31 | Observation (INO) | payer BC, SELFPAY ==
[2022-05-07] VITALS (7 sets, daily range): BP systolic 110–125; BP diastolic 67–83; PULSE 91–107; RESP 18–22; TEMP 37.1–37.7; O2SAT 92–96; BMI 24.3; BMI 24.0
--- NOTE | 2022-05-07 18:20 | XR_ITS ---
PROCEDURE INFORMATION: Exam: XR Chest Exam date and time: 05/07/2022 6:35 PM Age: 51 years old Clinical indication: Shortness of breath; Prior surgery; Surgery date: <1 month; Surgery type: Loop recorder implanted by cardiology. Patient HX: Smoker; Additional info: SOA, cough TECHNIQUE: Imaging protocol: Radiologic exam of the chest. Views: 1 view. COMPARISON: CR XR CHEST 2V 06/11/2021 11:01 AM FINDINGS: Lungs: Unremarkable. No consolidation. Pleural spaces: Unremarkable. No pleural effusion. No pneumothorax. Heart/Mediastinum: Unremarkable. No cardiomegaly. Bones/joints: Unremarkable. IMPRESSION: No acute findings.
--- NOTE | 2022-05-07 18:29 | HMH.EDGENADL ---
Discharge Plan Disposition Patient Disposition: Admitted As Inpatient Condition: Good Prescriptions Prescriptions: No Action oxycodone-acetaminophen [Percocet] 5-325 mg tablet 1 tab PO BID PRN (Reason: pain) Qty: 60 0RF theophylline 200 mg capsule,extended release 24hr 200 mg PO DAILY Qty: 90 3RF amlodipine 5 MG tablet See Rx Instructions .Route .COMPLEX Rx Instructions: TAKE ONE TABLET BY MOUTH EVERY DAY albuterol sulfate 8.5 GM HFA aerosol inhaler See Rx Instructions .Route .COMPLEX Rx Instructions: INHALE 2 puffs BY MOUTH EVERY 6 HOURS with spacer --SHAKE WELL BEFORE USE-- cholecalciferol (vitamin D3) 25 MCG tablet See Rx Instructions .Route .COMPLEX Rx Instructions: TAKE ONE TABLET BY MOUTH EVERY DAY aspirin [Adult Low Dose Aspirin] 81 mg tablet,delayed release (DR/EC) 81 mg PO DAILY meclizine 25 mg tablet 25 mg PO TID nicotine 21 mg/24 hr patch 24 hour 1 patch transdermal DAILY mupirocin 2 % ointment 1 applic topical BID fluticasone propion-salmeterol 100-50 mcg/dose blister with device See Rx Instructions .ROUTE .COMPLEX Rx Instructions: INHALE 1 PUFF BY MOUTH TWICE DAILY Referrals Follow up/Referrals: Marco Antonio Santamaria MD [Primary Care Provider] - See instructions Clinical Impressions Clinical Impression: Acute hypoxemic respiratory failure, Acute exacerbation of chronic obstructive pulmonary disease Discharge ED Provider: Wanda Barton General Adult HPI General Chief complaint: Upper Respiratory Infection Stated complaint: SOA,chills,vomiting Time Seen by Provider: 05/07/22 18:17 History of Present Illness HPI narrative: This patient is a 51-year-old male with a history of COPD, extensive smoking history, and hypertension presented to the emergency department for evaluation of body aches, chills, cough, and shortness of breath that started yesterday. Patient states that he uses inhalers at home for COPD, however his shortness of breath has gotten significantly worse. He complains of some mild chest discomfort, but denies any significant chest pain. He complains of nausea and vomiting. He denies any abdominal pain, changes bowel movements, or other concerns. No other symptoms noted at this time. Related Data Home Medications Medication Instructions Recorded Confirmed albuterol sulfate 90 mcg/actuation See Rx Instructions .Route 12/10/21 05/05/22 aerosol inhaler .COMPLEX COPD amlodipine 5 mg tablet See Rx Instructions .Route 12/10/21 05/05/22 .COMPLEX blood pressure cholecalciferol (vitamin D3) 25 See Rx Instructions .Route 12/10/21 05/05/22 mcg (1,000 unit) tablet .COMPLEX Supplement aspirin 81 mg tablet,delayed 81 mg PO DAILY . 05/02/22 05/05/22 release (Adult Low Dose Aspirin) fluticasone 100 mcg-salmeterol 50 See Rx Instructions .Route 05/02/22 05/05/22 mcg/dose blistr powdr for .COMPLEX . inhalation meclizine 25 mg tablet 25 mg PO TID . 05/02/22 05/05/22 mupirocin 2 % topical ointment 1 applic topical BID . 05/02/22 05/05/22 nicotine 21 mg/24 hr daily 1 patch transdermal DAILY . 05/02/22 05/05/22 transdermal patch Previous Rx's Medication Instructions Recorded oxycodone-acetaminophen 5 mg-325 1 tab PO BID PRN pain #60 tabs 04/30/22 mg tablet (Percocet) theophylline 200 mg 200 mg PO DAILY . #90 caps 05/06/22 capsule,extended release 24 hr Allergies Allergy/AdvReac Type Severity Reaction Status Date / Time hydrocodone [HYDROCODONE] Allergy Mild Verified 05/05/22 11:20 SELDANE Allergy Unknown NA-SEDATION Uncoded 05/05/22 11:20 [facility] Medical History COPD (chronic obstructive pulmonary disease) COPD mixed type Hypertension Vitamin D deficiency Surgical History History of appendectomy History of hernia surgery History of loop recorder History of tonsille
--- NOTE | 2022-05-07 19:25 | ECG_ITS ---
APPROVED REPORT Exam: Resting ECG HR:106 bpm ECG Measurements Heart Rate 106 AXES MN 146 P 82 QRSd 97 QRS 87 QT 302 T 63 QTc 364 Conclusion SINUS TACHYCARDIA LOW QRS VOLTAGE IN EXTREMITY LEADS [QRS DEFLECTION < 0.5 mV IN LIMB LEADS] ABNORMAL RHYTHM ECG UNCONFIRMED REPORT Electronically signed by : Roger Vang MD 05/08/2022 19:50:09
[2022-05-07 19:58] LABS: Coronavirus 19, PCR Not Detected (NotDetected); Influenza B, PCR Not Detected (NotDetected)
[2022-05-07 19:59] LABS: Basophils # 0.1 K/mm3 (0-0.2); Basophils % 1.3 % (0.1-2.0); Eosinophils % 0.6 % (0.1-12.0); Hematocrit 47.6 % (42.0-52.0); Hemoglobin 16.1 g/dL (14.1-18.0); Lymphocytes # 0.5 K/mm3 (0.7-4.5); Lymphocytes % 9.1 % (10-50); Mean Corpuscular HGB Conc 33.9 g/dL (31.8-35.4); Mean Corpuscular Hemoglobin 31.6 pg (27.0-31.2); Mean Corpuscular Volume 93.2 fl (80-94); Mean Platelet Volume 7.7 fl (7.4-10.4); Monocytes # 0.4 K/mm3 (0.1-1.0); Monocytes % 6.9 % (1.7-9.3); Neutrophils # 4.2 K/mm3 (1.8-7.8); Neutrophils % 82.1 % (37.0-80.0); Platelet Count 235 K/mm3 (142-424); Red Cell Distribution Width 13.5 % (11.5-17.5); White Blood Count 5.1 K/mm3 (4.8-10.8)
[2022-05-07 20:07] LABS: Blood Urea Nitrogen 13 mg/dl (9-20); Calcium 9.5 mg/dl (8.4-10.2); Carbon Dioxide 25 mmol/L (22.0-30.0); Chloride 99 mmol/L (98-107); Creatinine Clearance Estimated 106 mL/min (50-200); Estimated Glomerular Filt Rate 101 ml/min (>60); GFR (African American) 122 ML/MIN (>60); Glucose 102 mg/dl (74-100); Sodium 135 mmol/L (136-145)
[2022-05-07 20:12] LABS: D-Dimer 0.71 ug/mL (0.0-0.5)
[2022-05-07 20:16] LABS: NT Pro Brain Natriuretic Pep. 81.3 pg/mL (0-125)
[2022-05-07 20:21] LABS: Troponin I < 0.01 ng/ml (0.00-0.034)
[2022-05-07 21:13] LABS: Influenza A, PCR Detected (NotDetected)
--- NOTE | 2022-05-07 21:35 | PC.NURSE ---
He arrived to the floor via w/c with staff at this time.
--- NOTE | 2022-05-07 21:56 | EXP.HP ---
History of Present Illness *Admission Date: 05/07/22 *Reason for visit:: Shortness of breath *History of present illness: This is a 51-year-old male with past medical history of COPD, hypertension, bradycardia, tobacco abuse who presents emergency department today with complaints of 2 days of cough, shortness of breath and fatigue. He reports yesterday afternoon he developed sudden onset of chills, cough, shortness of breath that is above his baseline COPD. He denies any productiveness to his cough. He did not receive the flu shot this year but has been COVID vaccinated in the past 2 years. Emergency department work-up remarkable for flu a positive. He was medicated in the emergency department with bronchodilators and steroids. He was attempted to discharge but became hypoxic with oxygen saturations in the mid 80s. He does require home O2 at baseline. Given the above-mentioned complaints he will be admitted to the hospital service for further evaluation management. [facility] Medical History COPD (chronic obstructive pulmonary disease) COPD mixed type Hypertension Vitamin D deficiency Surgical History History of appendectomy History of hernia surgery History of loop recorder History of tonsillectomy Family History (Updated 05/07/22 @ 22:12 by Fartun Espinoza RN) Other Diabetes Family history of diabetes mellitus type I Family history of diabetes mellitus type II Pacemaker Social History (Updated 05/07/22 @ 22:12 by Fartun Espinoza RN) Smoking Status: Current every day smoker tobacco type: cigarettes packs per day: 1 alcohol intake: never substance use type: denies use current occupational status: employed Travel in the last 8 weeks: None household members: family housing: house current occupation: aircraft mechanic structures caffeine: No Review of Systems Constitutional Constitutional: Reports chills, Reports poor appetite, Reports lethargy and Reports malaise Eyes Eyes: Reports system reviewed and no additional complaints, except as documented ENT Ears, Nose, Mouth, and Throat: Reports system reviewed and no additional complaints, except as documented *Cardiovascular Cardiovascular: Reports dyspnea, Reports irregular heart rhythm and Reports slow heart rate Comments: Reports recent cardiology evaluation for bradycardia. *Respiratory Respiratory: Reports as per HPI, Reports chest congestion, Reports cough and Reports dyspnea *Gastrointestinal Gastrointestinal: Reports system reviewed and no additional complaints, except as documented *Genitourinary Genitourinary: Reports system reviewed and no additional complaints, except as documented *Musculoskeletal Musculoskeletal: Reports myalgias Integumentary/Breasts Skin/Breast: Reports system reviewed and no additional complaints, except as documented *Neurologic Neurologic: Reports system reviewed and no additional complaints, except as documented Psychiatric Psychiatric: Reports system reviewed and no additional complaints, except as documented Meds Home Medications and Allergies Home Medications Medication Instructions Recorded Confirmed Type albuterol sulfate 90 mcg/actuation 2 puff inhalation Q6HP PRN 12/10/21 05/08/22 History aerosol inhaler Shortness Of Breath amlodipine 5 mg tablet 5 mg PO DAILY Hypertension 12/10/21 05/08/22 History cholecalciferol (vitamin D3) 25 25 mcg PO DAILY Supplement 12/10/21 05/08/22 History mcg (1,000 unit) tablet aspirin 81 mg tablet,delayed 81 mg PO DAILY Heart disease 05/02/22 05/08/22 History release (Adult Low Dose Aspirin) fluticasone 100 mcg-salmeterol 50 1 inh inhalation BID COPD 05/02/22 05/08/22 History mcg/dose blistr powdr for inhalation mupirocin 2 % topical ointment 1 applic topical BID Skin condition 05/02/22 05/08/22 History nicotine 21 mg/24 hr daily 1 patch transdermal DAILY SMOKING
[2022-05-07 22:16] LABS: Troponin I < 0.01 ng/ml (0.00-0.034)
[2022-05-08 00:58] LABS: Troponin I < 0.01 ng/ml (0.00-0.034)
--- NOTE | 2022-05-08 01:49 | PC.NURSE ---
pt is resting comfortably @ this time. Tolerating room air and random check was 93% while asleep. He was afebrile and denies any pain or SOA.
[2022-05-08 04:00] VITALS: BP 110/67; PULSE 81; RESP 18; TEMP 36.9; O2SAT 92
[2022-05-08 04:57] VITALS: BMI 24.0
[2022-05-08 07:03] LABS: Anion Gap 16.5 mEq/L (5-15); Blood Urea Nitrogen 15 mg/dl (9-20); Calcium 9.4 mg/dl (8.4-10.2); Carbon Dioxide 25 mmol/L (22.0-30.0); Chloride 101 mmol/L (98-107); Creatinine Clearance Estimated 105 mL/min (50-200); Estimated Glomerular Filt Rate 101 ml/min (>60); GFR (African American) 122 ML/MIN (>60); Glucose 132 mg/dl (74-100); Potassium 4.5 mmoL/L (3.5-5.1); Sodium 138 mmol/L (136-145)
--- NOTE | 2022-05-08 07:13 | HMH.PHAINT1 ---
Pharmacy Intervention Comments: MEDICATION RECONCILIATION COMPLETED ON PATIENT USING EXTERNAL FILL HISTORY FROM PHARMACY. -ABDI HAYNES, BERENICED
[2022-05-08 07:34] LABS: Basophils % 0.2 % (0.1-2.0); Eosinophils % 0.2 % (0.1-12.0); Hematocrit 48.7 % (42.0-52.0); Hemoglobin 16.2 g/dL (14.1-18.0); Lymphocytes # 0.5 K/mm3 (0.7-4.5); Lymphocytes % 4.7 % (10-50); Mean Corpuscular HGB Conc 33.3 g/dL (31.8-35.4); Mean Corpuscular Hemoglobin 31.8 pg (27.0-31.2); Mean Corpuscular Volume 95.4 fl (80-94); Mean Platelet Volume 7.9 fl (7.4-10.4); Monocytes # 0.3 K/mm3 (0.1-1.0); Monocytes % 2.7 % (1.7-9.3); Neutrophils # 9.6 K/mm3 (1.8-7.8); Neutrophils % 92.1 % (37.0-80.0); Platelet Count 225 K/mm3 (142-424); Red Cell Distribution Width 13.5 % (11.5-17.5); White Blood Count 10.4 K/mm3 (4.8-10.8)
[2022-05-08 07:36] VITALS: BP 108/70; PULSE 113; RESP 17; TEMP 39.1; O2SAT 91
[2022-05-08 07:38] LABS: MANUAL DIFFERENTIAL MANUAL DIFFERENTIAL (MANUAL DIFF)
[2022-05-08 08:19] LABS: Lymphocytes % 3 % (10-50); Monocytes % 4 % (2-9); Neutrophils % 93 % (42-76); Platelet Estimate Normal; RBC Morphology Normal; Total Cells Counted 100
--- NOTE | 2022-05-08 10:52 | ECG_ITS ---
APPROVED REPORT Exam: Resting ECG HR:93 bpm ECG Measurements Heart Rate 93 AXES NJ 142 P 71 QRSd 90 QRS -10 QT 317 T 52 QTc 368 Conclusion SINUS RHYTHM NORMAL ECG UNCONFIRMED REPORT Electronically signed by : Roger Vang MD 05/08/2022 19:48:01
--- NOTE | 2022-05-08 11:17 | EXP.DC.SUM ---
General Admission date:: 05/07/22 Discharge date: 05/08/22 HPI HPI HPI: This is a 51-year-old male with past medical history of COPD, hypertension, bradycardia, tobacco abuse who presents emergency department today with complaints of 2 days of cough, shortness of breath and fatigue. He reports yesterday afternoon he developed sudden onset of chills, cough, shortness of breath that is above his baseline COPD. He denies any productiveness to his cough. He did not receive the flu shot this year but has been COVID vaccinated in the past 2 years. Emergency department work-up remarkable for flu a positive. He was medicated in the emergency department with bronchodilators and steroids. He was attempted to discharge but became hypoxic with oxygen saturations in the mid 80s. He does require home O2 at baseline. Given the above-mentioned complaints he will be admitted to the hospital service for further evaluation management. Hospital Course Hospital Course Hospital Course: Patient is a 51-year-old male with past medical history of COPD, tobacco abuse, hypertension, and bradycardia who is admitted for acute hypoxic respiratory failure secondary to COPD exacerbation and influenza A. After initial desat in the ER patient maintained O2 sats greater than 90% on room air while at rest. He did desat to less than 89% while walking on room air, and therefore patient will be sent home with supplemental oxygen, 2 L by nasal cannula. Patient will continue Tamiflu to complete a 5-day course, and prednisone 20 mg p.o. also to complete a 5-day course. I will increase patient's COPD meds to include Advair. Exam Data for Last 24 hours Vital signs and Labs for Last 24 Hours: Temp Pulse Resp BP Pulse Ox 102.4 F H 113 H 17 108/70 L 91 L 05/08/22 07:36 05/08/22 07:36 05/08/22 07:36 05/08/22 07:36 05/08/22 07:36 Laboratory Results - last 24 hr 05/07/22 19:38: WBC 5.1, RBC 5.10, Hgb 16.1, Hct 47.6, MCV 93.2, MCH 31.6 H, MCHC 33.9, RDW 13.5, Plt Count 235, MPV 7.7, Neut % (Auto) 82.1 H, Lymph % (Auto) 9.1 L, [place] % (Auto) 6.9, Eos % (Auto) 0.6, Baso % (Auto) 1.3, Neut # (Auto) 4.2, Lymph # (Auto) 0.5 L, [place] # (Auto) 0.4, Eos # (Auto) 0.0, Baso # (Auto) 0.1 05/07/22 19:38: D-Dimer 0.71 H 05/07/22 19:38: Sodium 135 L, Potassium 4.0, Chloride 99, Carbon Dioxide 25, Anion Gap 15.0, BUN 13, Creatinine 0.80, Estimated Creat Clear 106, Estimated GFR 101, Est GFR ( Amer) 122, Glucose 102 H, Calcium 9.5, Troponin I < 0.01 05/07/22 19:38: NT-Pro-B Natriuret Pep 81.3 05/07/22 19:38: SARS-CoV-2 (PCR) Not detected, Influenza A Untype (PCR) Detected A, Influenza Type B (PCR) Not detected 05/07/22 21:23: Troponin I < 0.01 05/08/22 00:24: Troponin I < 0.01 05/08/22 06:02: Sodium 138, Potassium 4.5, Chloride 101, Carbon Dioxide 25, Anion Gap 16.5 H, BUN 15, Creatinine 0.80, Estimated Creat Clear 105, Estimated GFR 101, Est GFR ( Amer) 122, Glucose 132 H D, Calcium 9.4 05/08/22 06:12: WBC 10.4 D, RBC 5.10, Hgb 16.2, Hct 48.7, MCV 95.4 H, MCH 31.8 H, MCHC 33.3, RDW 13.5, Plt Count 225, MPV 7.9, Neut % (Auto) 92.1 H, Lymph % (Auto) 4.7 L, Teton % (Auto) 2.7, Eos % (Auto) 0.2, Baso % (Auto) 0.2, Neut # (Auto) 9.6 H, Lymph # (Auto) 0.5 L, T[place] # (Auto) 0.3, Eos # (Auto) 0.0, Baso # (Auto) 0.0, Total Counted 100, Neutrophils % (Manual) 93 H, Lymphocytes % (Manual) 3 L, Monocytes % (Manual) 4, Platelet Estimate Normal, RBC Morphology Normal I & O for Last 24 hours: Intake & Output 05/05/22 05/06/22 05/07/22 05/08/22 23:59 23:59 23:59 23:59 Intake Total 300 / 300 Output Total 0 / 0 0 / 0 Balance 0 / 0 300 / 300 Weight 69.598 kg 69.626 kg Constitutional Constitutional: no acute distress, average body habitus, chronically ill appearing and cooperative *Routine HEENT Exam Head: Present normocephalic and atraumatic Eye: Present EOMI and PERRL ENT: Present mucous membranes moist and oropharynx clear; Absent dentition normal *Routine Neck Exam Neck: Pres
--- NOTE | 2022-05-08 12:48 | P.CONPHA_ITS ---
Pharmacy Intervention Comments: Discharge counseling completed at bedside with patient and . Discussed new start medications including oseltamivir and prednisone, as well as continued medications. Explained the indications of oseltamivir and prednisone (influenza) and possible side effects including GI upset, headache, etc. Curly boston has concerns with theophylline supply at home since PCP increased his dose. Encouraged patient to follow up with his PCP to obtain refills of medication. Patient has no other questions or concerns at this time.
--- NOTE | 2022-05-09 13:43 | CARE MANAGER ---
Contacted patient related to hospital discharge. Patient states that he is doing well. Denies any questions or concerns. He picked up his prescriptions and is aware of follow up appointments. ALEKS Durham
== END 2022-05-08 13:21 | disposition home or self-care (01) ==
LOC: ER 20:16 → 2ND 20:59
PROVIDERS: Nurse Practitioner Acute Care; Admitting Provider Emergency Medicine; Emergency Provider Emergency Medicine; PCP Emergency Medicine; Visit Provider Emergency Medicine
DX: J10.1 Influenza due to other identified influenza virus with other respiratory manifestations (principal); J44.1 Chronic obstructive pulmonary disease with (acute) exacerbation; J96.01 Acute respiratory failure with hypoxia; F17.210 Nicotine dependence, cigarettes, uncomplicated; I10 Essential (primary) hypertension; Z79.899 Other long term (current) drug therapy; Z20.822 Contact with and (suspected) exposure to COVID-19
CPT/HCPCS: 36415; 71045; 80048; 83880; 84484; 85007; 85025; 85378; 93005; 94618; 99285; C9803; G0378; J2405; U0003; U0005

== ENCOUNTER 2022-05-14 12:17 | Emergency (ER) | payer BC, SELFPAY ==
[2022-05-14] VITALS (7 sets, daily range): BP systolic 114–130; BP diastolic 65–83; PULSE 79–95; RESP 18; TEMP 36.7; O2SAT 72–95; BMI 24.1
--- NOTE | 2022-05-14 13:31 | XR_ITS ---
FINAL REPORT TECHNIQUE: Chest PA & Lateral CLINICAL HISTORY: productive cough COMPARISON: 05/07/2022 FINDINGS: 2 views of the chest were performed. A loop recording device is present in the left anterior chest. The heart size is normal. The mediastinum is within normal limits. There is some scarring in the right middle lobe. The lungs are otherwise clear. There are no pleural effusions. There is no pneumothorax. The bony thorax appears intact. IMPRESSION: No acute cardiopulmonary process. Reviewed, Interpreted and Dictated by Edgar Miller MD Transcribed by Lily Dowling Authenticated and [facility]
[2022-05-14 13:45] LABS: Coronavirus 19, PCR Not Detected (NotDetected); Influenza B, PCR Not Detected (NotDetected)
[2022-05-14 13:52] LABS: Chloride 96 mmol/L (98-107)
[2022-05-14 13:53] LABS: Potassium 3.8 mmoL/L (3.5-5.1); Sodium 135 mmol/L (136-145)
[2022-05-14 13:55] LABS: Alanine Aminotransferase 24 U/L (12-78); Aspartate Amino Transferase 24 U/L (17-59); Blood Urea Nitrogen 19 mg/dl (9-20); Creatinine Clearance Estimated 121 mL/min (50-200); Estimated Glomerular Filt Rate 118 ml/min (>60); GFR (African American) 143 ML/MIN (>60)
[2022-05-14 13:56] LABS: Albumin/Globulin Ratio 1.3 (1.1-1.8); Alkaline Phosphatase 137 U/L (38-126); Anion Gap 14.8 mEq/L (5-15); Bilirubin,Total 0.8 mg/dl (0.2-1.3); Calcium 9.5 mg/dl (8.4-10.2); Carbon Dioxide 28 mmol/L (22.0-30.0); Globulin 3.1 g/dL (1.3-3.2); Glucose 106 mg/dl (74-100); Total Protein,Serum 7.1 g/dl (6.3-8.2)
[2022-05-14 14:12] LABS: Basophils # 0.1 K/mm3 (0-0.2); Basophils % 0.7 % (0.1-2.0); Eosinophils % 0.1 % (0.1-12.0); Hematocrit 47.1 % (42.0-52.0); Hemoglobin 15.8 g/dL (14.1-18.0); Lymphocytes # 1.4 K/mm3 (0.7-4.5); Lymphocytes % 12.2 % (10-50); Mean Corpuscular HGB Conc 33.5 g/dL (31.8-35.4); Mean Corpuscular Hemoglobin 31.4 pg (27.0-31.2); Mean Corpuscular Volume 93.8 fl (80-94); Mean Platelet Volume 8.4 fl (7.4-10.4); Monocytes # 0.7 K/mm3 (0.1-1.0); Monocytes % 5.6 % (1.7-9.3); Neutrophils # 9.6 K/mm3 (1.8-7.8); Neutrophils % 81.5 % (37.0-80.0); Platelet Count 341 K/mm3 (142-424); Red Blood Count 5.02 M/mm3 (4.60-6.20); Red Cell Distribution Width 13.6 % (11.5-17.5); White Blood Count 11.8 K/mm3 (4.8-10.8)
--- NOTE | 2022-05-14 14:17 | HMH.EDGENADL ---
Discharge Plan Disposition Patient Disposition: Home, Self-Care Condition: Fair Prescriptions Prescriptions: New famotidine [Pepcid] 20 mg tablet 20 mg PO BID Qty: 10 0RF benzonatate 100 mg capsule 100 mg PO TID PRN (Reason: cough) Qty: 20 0RF azithromycin 250 mg tablet 250 mg PO DAILY Qty: 4 0RF No Action theophylline 400 mg tablet extended release 24 hr 200 mg PO DAILY ondansetron 4 mg tablet,disintegrating 4 mg PO Q6H PRN (Reason: nausea and vomiting) 5 Days Qty: 20 0RF oxycodone-acetaminophen [Percocet] 5-325 mg tablet 1 tab PO BIDP PRN (Reason: pain) oseltamivir [Tamiflu] 75 mg Capsule 75 mg PO BID Qty: 8 0RF prednisone 20 mg tablet 20 mg PO DAILY Qty: 4 0RF amlodipine 5 MG tablet 5 mg PO DAILY albuterol sulfate 8.5 GM HFA aerosol inhaler 2 puff inhalation Q6HP PRN (Reason: Shortness Of Breath) cholecalciferol (vitamin D3) 25 MCG tablet 25 mcg PO DAILY aspirin [Adult Low Dose Aspirin] 81 mg tablet,delayed release (DR/EC) 81 mg PO DAILY nicotine 21 mg/24 hr patch 24 hour 1 patch transdermal DAILY mupirocin 2 % ointment 1 applic topical BID fluticasone propion-salmeterol 100-50 mcg/dose blister with device 1 inh inhalation BID Referrals Follow up/Referrals: Marco Antonio Santamaria MD [Primary Care Provider] - See instructions Activity Restrictions/Add. Instructions Additional Instructions/Restrictions: Continue Zofran as needed for nausea. Pepcid as prescribed. Benzonatate as needed for cough. Zithromax, antibiotic, as prescribed. Rest and drink plenty of fluids. Follow-up with Dr. Mccann in the office on Thursday as scheduled. Clinical Impressions Clinical Impression: Influenza A, Bronchitis Instructions Patient Instructions: DI for Nausea -- Adult, DI for Influenza -- Adult, DI for Acute Bronchitis Discharge ED Provider: Santnaa Angel Adult [facility] General Chief complaint: Nausea/Vomiting/Diarrhea Stated complaint: cough, vomiting, sob Time Seen by Provider: 05/14/22 14:09 Mode of Arrival: Ambulatory Source of Information: Patient Limitations: No Limitations Description of Symptoms (Recalled from ER Triage Doc. by RN): c/o center stomach cramping since Thursday with spitting yellow/black stuff up with no appetite and vomiting. States a few days ago he was released from here with the flu and he has just gotten worse since DC. History of Present Illness HPI narrative: Patient states he was admitted here overnight for influenza last week. Since discharge he has not gotten any better. He complains of stomach cramps, nausea and vomiting. No appetite. Coughing up yellow/black stuff. Feels like he might be dehydrated. He was discharged on Tamiflu and prednisone, which he has finished. States he is not on any medication for cough or nausea, although review of his recent prescription shows that he has filled a prescription for Zofran. He was discharged on nasal cannula oxygen. He says he uses it as needed. He does not have a pulse oximeter at home. He uses it based on his symptoms. He has COPD. States he has an appointment to see his PCP, Dr. Santamaria, on 05/16/2022, but states that he was feeling so sick he decided to come to the emergency department. Related Data Home Medications Medication Instructions Recorded Confirmed albuterol sulfate 90 mcg/actuation 2 puff inhalation Q6HP PRN 12/10/21 05/08/22 aerosol inhaler Shortness Of Breath amlodipine 5 mg tablet 5 mg PO DAILY Hypertension 12/10/21 05/08/22 cholecalciferol (vitamin D3) 25 25 mcg PO DAILY Supplement 12/10/21 05/08/22 mcg (1,000 unit) tablet aspirin 81 mg tablet,delayed 81 mg PO DAILY Heart disease 05/02/22 05/08/22 release (Adult Low Dose Aspirin) fluticasone 100 mcg-salmeterol 50 1 inh inhalation BID COPD 05/02/22 05/08/22 mcg/dose blistr powdr for inhalation mupirocin 2 % topical ointment 1 applic topical BID Skin
[2022-05-14 14:27] LABS: Influenza A, PCR Detected (NotDetected)
[2022-05-14 14:45] LABS: Theophylline < 1.0 ug/ml (10-20)
== END 2022-05-14 16:50 | disposition home or self-care (01) ==
PROVIDERS: Emergency Provider Emergency Medicine; PCP Emergency Medicine
DX: J10.1 Influenza due to other identified influenza virus with other respiratory manifestations (principal); R06.02 Shortness of breath; R11.2 Nausea with vomiting, unspecified; R19.7 Diarrhea, unspecified; R53.1 Weakness; Z20.822 Contact with and (suspected) exposure to COVID-19; I10 Essential (primary) hypertension; E55.9 Vitamin D deficiency, unspecified; J44.9 Chronic obstructive pulmonary disease, unspecified; F17.210 Nicotine dependence, cigarettes, uncomplicated; Z79.51 Long term (current) use of inhaled steroids; Z79.899 Other long term (current) drug therapy; Z88.5 Allergy status to narcotic agent; Z88.6 Allergy status to analgesic agent; Z88.8 Allergy status to other drugs, medicaments and biological substances; Z82.49 Family history of ischemic heart disease and other diseases of the circulatory system; Z83.3 Family history of diabetes mellitus
CPT/HCPCS: 71046; 80053; 80198; 85025; 96374; 96375; 99284; C9803; J0456; J2405; U0003; U0005

== ENCOUNTER 2022-05-26 11:45 | Emergency (ER) | payer BC, SELFPAY ==
[2022-05-26 11:46] VITALS: BP 162/84; PULSE 77; RESP 16; TEMP 36.9; O2SAT 98; BMI 25.0
[2022-05-26 11:54] VITALS: BP 162/84; PULSE 77; O2SAT 99
--- NOTE | 2022-05-26 11:59 | CT_ITS ---
FINAL REPORT TECHNIQUE: IV contrast enhanced exam CLINICAL HISTORY: abd pain FINDINGS: Abdomen: Multifocal airspace opacity within the bilateral lung bases compatible with pneumonia. Viral pneumonia not excluded. Small hypodense lesions in the left kidney likely represent cysts. Gallbladder is unremarkable. Remaining solid abdominal organs are unremarkable. Presumed surgical change from appendectomy. No bowel obstruction is present. There is no free air. No fluid collection is seen. Moderate prostate enlargement. There is no adenopathy. Pelvis: The appendix is normal. No bowel wall thickening is present. There is no free fluid. No pelvic mass is seen. IMPRESSION: No findings to account for abdominal or pelvic symptoms. Multifocal pneumonia in the lung bases. Viral pneumonia cannot be excluded. Reviewed, Interpreted and Dictated by Bianka Andres MD Transcribed by Kam Bagley Authenticated and [facility]
--- NOTE | 2022-05-26 12:01 | HMH.EDGENADL ---
Discharge Plan Prescriptions Prescriptions: No Action lifzryrramzdeih-lkvxgksny-NB [Bromfed DM] 2-30-10 mg/5 mL syrup 5 ml PO Q8H PRN (Reason: cold symptoms) Qty: 150 1RF theophylline 400 mg tablet extended release 24 hr 200 mg PO DAILY ondansetron 4 mg tablet,disintegrating 4 mg PO Q6H PRN (Reason: nausea and vomiting) 5 Days Qty: 20 0RF oxycodone-acetaminophen [Percocet] 5-325 mg tablet 1 tab PO BIDP PRN (Reason: pain) amlodipine 5 MG tablet 5 mg PO DAILY albuterol sulfate 8.5 GM HFA aerosol inhaler 2 puff inhalation Q6HP PRN (Reason: Shortness Of Breath) cholecalciferol (vitamin D3) 25 MCG tablet 25 mcg PO DAILY aspirin [Adult Low Dose Aspirin] 81 mg tablet,delayed release (DR/EC) 81 mg PO DAILY nicotine 21 mg/24 hr patch 24 hour 1 patch transdermal DAILY mupirocin 2 % ointment 1 applic topical BID fluticasone propion-salmeterol 100-50 mcg/dose blister with device 1 inh inhalation BID famotidine [Pepcid] 20 mg tablet 20 mg PO BID Qty: 10 0RF benzonatate 100 mg capsule 100 mg PO TID PRN (Reason: cough) Qty: 20 0RF Referrals Follow up/Referrals: Marco Antonio Santamaria MD [Primary Care Provider] - See instructions Discharge ED Provider: Demond Maharaj General Adult HPI General Stated complaint: Stomach Cramps [id number] Time Seen by Provider: 05/26/22 11:55 History of Present Illness HPI narrative: Patient presents with 2 weeks of right sided abdominal pain. He describes the pain as moderate and worse with movement. He denies fever, he denies vomiting or diarrhea. Related Data Home Medications Medication Instructions Recorded Confirmed albuterol sulfate 90 mcg/actuation 2 puff inhalation Q6HP PRN 12/10/21 05/26/22 aerosol inhaler Shortness Of Breath amlodipine 5 mg tablet 5 mg PO DAILY Hypertension 12/10/21 05/26/22 cholecalciferol (vitamin D3) 25 25 mcg PO DAILY Supplement 12/10/21 05/26/22 mcg (1,000 unit) tablet aspirin 81 mg tablet,delayed 81 mg PO DAILY Heart disease 05/02/22 05/26/22 release (Adult Low Dose Aspirin) fluticasone 100 mcg-salmeterol 50 1 inh inhalation BID COPD 05/02/22 05/26/22 mcg/dose blistr powdr for inhalation mupirocin 2 % topical ointment 1 applic topical BID Skin condition 05/02/22 05/26/22 nicotine 21 mg/24 hr daily 1 patch transdermal DAILY SMOKING 05/02/22 05/26/22 transdermal patch CESSATION oxycodone-acetaminophen 5 mg-325 1 tab PO BIDP PRN pain 05/08/22 05/26/22 mg tablet (Percocet) theophylline 400 mg 200 mg PO DAILY COPD 05/08/22 05/26/22 tablet,extended release 24 hr Previous Rx's Medication Instructions Recorded ondansetron 4 mg disintegrating 4 mg PO Q6H PRN nausea and 05/13/22 tablet vomiting 5 days #20 tabs benzonatate 100 mg capsule 100 mg PO TID PRN cough #20 caps 05/14/22 famotidine 20 mg tablet (Pepcid) 20 mg PO BID #10 tabs 05/14/22 ymsualottwiwhkm-dfzsnryjxljbbow-LC 5 ml PO Q8H PRN cold symptoms #150 05/16/22 2 mg-30 mg-10 mg/5 mL oral syrup mL (Bromfed DM) Allergies Allergy/AdvReac Type Severity Reaction Status Date / Time hydrocodone [HYDROCODONE] Allergy Mild Verified 05/26/22 10:43 SELDANE Allergy Unknown NA-SEDATION Uncoded 05/26/22 10:43 PFS PFS Medical History COPD (chronic obstructive pulmonary disease) COPD mixed type Hypertension Vitamin D deficiency Surgical History History of appendectomy History of hernia surgery History of loop recorder History of tonsillectomy Family History Other Diabetes Family history of diabetes mellitus type I Family history of diabetes mellitus type II Pacemaker Social History Smoking Status: Current every day smoker tobacco type: cigarettes packs per day: 1 alcohol intake: never substance use type
[2022-05-26 12:18] LABS: Microscopic, Urine URINE MICROSCOPIC (MICROSCOPIC)
[2022-05-26 12:23] LABS: Basophils # 0.3 K/mm3 (0-0.2); Basophils % 3.6 % (0.1-2.0); Eosinophils # 0.1 K/mm3 (0.0-0.4); Eosinophils % 0.8 % (0.1-12.0); Hematocrit 46.7 % (42.0-52.0); Hemoglobin 15.3 g/dL (14.1-18.0); Lymphocytes # 1.2 K/mm3 (0.7-4.5); Lymphocytes % 16.3 % (10-50); Mean Corpuscular HGB Conc 32.8 g/dL (31.8-35.4); Mean Corpuscular Hemoglobin 31.3 pg (27.0-31.2); Mean Corpuscular Volume 95.6 fl (80-94); Mean Platelet Volume 7.5 fl (7.4-10.4); Monocytes # 0.3 K/mm3 (0.1-1.0); Monocytes % 3.5 % (1.7-9.3); Neutrophils # 5.8 K/mm3 (1.8-7.8); Neutrophils % 75.8 % (37.0-80.0); Platelet Count 735 K/mm3 (142-424); Red Blood Count 4.88 M/mm3 (4.60-6.20); Red Cell Distribution Width 13.6 % (11.5-17.5); White Blood Count 7.7 K/mm3 (4.8-10.8)
[2022-05-26 12:23] LABS: Appearance,Urine CLEAR (Clear); Bilirubin,Urine Negative (Negative); Blood, Urine Negative (Negative); Color,Urine YELLOW (Yellow); Glucose,Urine (UA) Negative (Negative); Ketones,Urine Negative (Negative); Leukocyte Esterase,Urine Negative (Negative); Nitrate,Urine Negative (Negative); Protein,Urine Negative (Negative); Specific Gravity, Urine 1.015 (1.005-1.030); Urobilinogen,Urine 0.2 EU/dl (0.2)
[2022-05-26 12:27] LABS: Chloride 102 mmol/L (98-107); Sodium 137 mmol/L (136-145)
[2022-05-26 12:28] LABS: Potassium 4.3 mmoL/L (3.5-5.1)
[2022-05-26 12:30] LABS: Alanine Aminotransferase 23 U/L (12-78); Albumin Level 4.3 g/dl (3.5-5.0); Albumin/Globulin Ratio 1.3 (1.1-1.8); Alkaline Phosphatase 143 U/L (38-126); Anion Gap 10.3 mEq/L (5-15); Aspartate Amino Transferase 25 U/L (17-59); Bilirubin,Total 0.6 mg/dl (0.2-1.3); Blood Urea Nitrogen 11 mg/dl (9-20); Calcium 9.9 mg/dl (8.4-10.2); Carbon Dioxide 29 mmol/L (22.0-30.0); Estimated Glomerular Filt Rate 78 ml/min (>60); GFR (African American) 95 ML/MIN (>60); Globulin 3.3 g/dL (1.3-3.2); Glucose 100 mg/dl (74-100); Lipase 45 U/L (23-300); Total Protein,Serum 7.6 g/dl (6.3-8.2)
[2022-05-26 12:35] LABS: Bacteria,Urine Trace /lpf; Squamous Epithelial Cell,Urine Occasional #/hpf (0-5); WBC,Urine Occasional #/hpf (0-3)
--- NOTE | 2022-05-26 12:43 | PC.NURSE ---
Pt to CT
--- NOTE | 2022-05-26 12:50 | PC.NURSE ---
PT IN CT
--- NOTE | 2022-05-26 13:56 | PC.NURSE ---
Rounded on pt at this time. Updated on POC. PT requested to go to restroom. No other needs at this time
[2022-05-26 13:59] VITALS: BP 144/86; PULSE 78; O2SAT 98
[2022-05-26 14:30] VITALS: BP 140/70; PULSE 70; RESP 16; TEMP 36.8; O2SAT 98
== END 2022-05-26 14:32 | disposition home or self-care (01) ==
PROVIDERS: Emergency Provider Emergency Medicine; PCP Emergency Medicine
DX: R10.9 Unspecified abdominal pain (principal); Z79.899 Other long term (current) drug therapy; I10 Essential (primary) hypertension; J44.9 Chronic obstructive pulmonary disease, unspecified; J18.9 Pneumonia, unspecified organism
CPT/HCPCS: 74177; 80053; 81001; 83690; 85025; 96374; 99284; Q9967

== ENCOUNTER → 2022-08-01 14:48 | Outpatient (CLI) | payer BC, SELFPAY ==
[2022-08-01 17:01] LABS: Amphetamine/Metha Screen,Urine Negative ng/ml (<1000); Barbiturates Screen,Urine Negative ng/ml (<200)
[2022-08-01 17:02] LABS: Benzodiazepines Screen,Urine Negative ng/ml (<200)
[2022-08-01 17:03] LABS: Cannabinoid Screen,Urine Negative ng/ml (<50); Cocaine Screen,Urine Negative ng/ml (<300)
[2022-08-01 17:04] LABS: Methadone Screen,Urine Negative ng/ml (<300); Opiate Screen,Urine Negative ng/ml (<300)
[2022-08-01 17:05] LABS: Phencyclidine Screen,Urine Negative ng/ml (<25)
== END ==
PROVIDERS: PCP Emergency Medicine; Visit Provider Emergency Medicine
DX: Z79.899 Other long term (current) drug therapy (principal)
CPT/HCPCS: 80305

== ENCOUNTER → 2022-09-26 23:43 | Outpatient (CLI) | payer BC, SELFPAY ==
[2022-09-26 19:42] LABS: Amphetamine/Metha Screen,Urine Negative ng/ml (<1000)
[2022-09-26 19:43] LABS: Barbiturates Screen,Urine Negative ng/ml (<200); Benzodiazepines Screen,Urine Negative ng/ml (<200)
[2022-09-26 19:44] LABS: Cannabinoid Screen,Urine Negative ng/ml (<50)
[2022-09-26 19:45] LABS: Cocaine Screen,Urine Negative ng/ml (<300); Methadone Screen,Urine Negative ng/ml (<300)
[2022-09-26 19:46] LABS: Phencyclidine Screen,Urine Negative ng/ml (<25)
[2022-09-26 20:10] LABS: Opiate Screen,Urine Negative ng/ml (<300)
== END ==
PROVIDERS: PCP Emergency Medicine; Visit Provider Emergency Medicine
DX: Z79.899 Other long term (current) drug therapy (principal)
CPT/HCPCS: 80305

== ENCOUNTER → 2022-11-28 10:00 | Outpatient (CLI) | payer BC, SELFPAY ==
[2022-11-28 19:41] LABS: Amphetamine/Metha Screen,Urine Negative ng/ml (<1000)
[2022-11-28 19:42] LABS: Barbiturates Screen,Urine Negative ng/ml (<200)
[2022-11-28 19:43] LABS: Benzodiazepines Screen,Urine Negative ng/ml (<200); Cannabinoid Screen,Urine Positive ng/ml (<50)
[2022-11-28 19:44] LABS: Cocaine Screen,Urine Negative ng/ml (<300)
[2022-11-28 19:45] LABS: Methadone Screen,Urine Negative ng/ml (<300)
[2022-11-28 19:46] LABS: Phencyclidine Screen,Urine Negative ng/ml (<25)
[2022-11-28 19:47] LABS: Opiate Screen,Urine Negative ng/ml (<300)
== END ==
PROVIDERS: PCP Emergency Medicine; Visit Provider Emergency Medicine
DX: M79.2 Neuralgia and neuritis, unspecified (principal); Z79.899 Other long term (current) drug therapy
CPT/HCPCS: 80305

== ENCOUNTER → 2023-01-26 13:18 | Outpatient (CLI) | payer BC, SELFPAY ==
[2023-01-26 14:33] LABS: Amphetamine/Metha Screen,Urine Negative ng/ml (<1000)
[2023-01-26 14:34] LABS: Benzodiazepines Screen,Urine Negative ng/ml (<200); Cannabinoid Screen,Urine Negative ng/ml (<50)
[2023-01-26 14:35] LABS: Cocaine Screen,Urine Negative ng/ml (<300)
[2023-01-26 14:36] LABS: Methadone Screen,Urine Negative ng/ml (<300); Opiate Screen,Urine Negative ng/ml (<300)
[2023-01-26 14:37] LABS: Phencyclidine Screen,Urine Negative ng/ml (<25)
[2023-01-26 17:27] LABS: Barbiturates Screen,Urine Negative ng/ml (<200)
== END ==
PROVIDERS: PCP Emergency Medicine; Visit Provider Emergency Medicine
DX: M79.2 Neuralgia and neuritis, unspecified (principal)
CPT/HCPCS: 80305

== ENCOUNTER → 2023-03-18 01:10 | Outpatient (CLI) | payer BC, SELFPAY ==
[2023-03-18 23:41] LABS: Opiate Screen,Urine Negative ng/ml (<300)
[2023-03-18 23:42] LABS: Methadone Screen,Urine Negative ng/ml (<300)
[2023-03-18 23:44] LABS: Amphetamine/Metha Screen,Urine Negative ng/ml (<1000)
[2023-03-18 23:45] LABS: Barbiturates Screen,Urine Negative ng/ml (<200)
[2023-03-18 23:46] LABS: Benzodiazepines Screen,Urine Negative ng/ml (<200); Cannabinoid Screen,Urine Negative ng/ml (<50)
[2023-03-18 23:47] LABS: Cocaine Screen,Urine Negative ng/ml (<300)
[2023-03-18 23:48] LABS: Phencyclidine Screen,Urine Negative ng/ml (<25)
== END ==
PROVIDERS: PCP Emergency Medicine; Visit Provider Emergency Medicine
DX: Z79.899 Other long term (current) drug therapy (principal)
CPT/HCPCS: 80305

== ENCOUNTER → 2023-05-11 15:28 | Outpatient (CLI) | payer BC, SELFPAY ==
[2023-05-11 12:40] LABS: Barbiturates Screen,Urine Negative ng/ml (<200); Benzodiazepines Screen,Urine Negative ng/ml (<200)
[2023-05-11 12:41] LABS: Amphetamine/Metha Screen,Urine Negative ng/ml (<1000)
[2023-05-11 12:42] LABS: Cannabinoid Screen,Urine Negative ng/ml (<50); Cocaine Screen,Urine Negative ng/ml (<300)
[2023-05-11 12:43] LABS: Methadone Screen,Urine Negative ng/ml (<300); Opiate Screen,Urine Negative ng/ml (<300)
[2023-05-11 12:44] LABS: Phencyclidine Screen,Urine Negative ng/ml (<25)
== END ==
PROVIDERS: PCP Emergency Medicine; Visit Provider Emergency Medicine
DX: M79.2 Neuralgia and neuritis, unspecified (principal)
CPT/HCPCS: 80305

== ENCOUNTER → 2023-06-01 14:51 | Outpatient (CLI) | payer BC, SELFPAY ==
[2023-06-01 14:15] LABS: Coronavirus 19, PCR Not Detected (NotDetected); Influenza A, PCR Not Detected (NotDetected); Influenza B, PCR Not Detected (NotDetected)
[2023-06-01 14:35] LABS: Basophils % 0.5 % (0.1-2.0); Eosinophils % 0.7 % (0.1-12.0); Hematocrit 51.7 % (42.0-52.0); Hemoglobin 17.7 g/dL (14.1-18.0); Lymphocytes # 0.9 K/mm3 (0.7-4.5); Lymphocytes % 17.9 % (10-50); Mean Corpuscular HGB Conc 34.2 g/dL (31.8-35.4); Mean Corpuscular Hemoglobin 32.8 pg (27.0-31.2); Mean Platelet Volume 9.1 fl (7.4-10.4); Monocytes # 0.4 K/mm3 (0.1-1.0); Monocytes % 8.4 % (1.7-9.3); Neutrophils # 3.5 K/mm3 (1.8-7.8); Neutrophils % 72.6 % (37.0-80.0); Platelet Count 223 K/mm3 (142-424); Red Blood Count 5.38 M/mm3 (4.60-6.20); Red Cell Distribution Width 12.9 % (11.5-17.5); White Blood Count 4.8 K/mm3 (4.8-10.8)
[2023-06-01 16:27] LABS: Alanine Aminotransferase 30 U/L (12-78); Albumin Level 4.5 g/dl (3.5-5.0); Albumin/Globulin Ratio 1.6 (1.1-1.8); Alkaline Phosphatase 134 U/L (38-126); Anion Gap 11.9 mEq/L (5-15); Aspartate Amino Transferase 35 U/L (17-59); Bilirubin,Total 0.6 mg/dl (0.2-1.3); Blood Urea Nitrogen 11 mg/dl (9-20); Calcium 9.3 mg/dl (8.4-10.2); Carbon Dioxide 24 mmol/L (22.0-30.0); Chloride 102 mmol/L (98-107); Estimated Glomerular Filt Rate 100 ml/min (>60); GFR (African American) 121 ML/MIN (>60); Globulin 2.9 g/dL (1.3-3.2); Glucose 124 mg/dl (74-100); Potassium 3.9 mmoL/L (3.5-5.1); Sodium 134 mmol/L (136-145); Total Protein,Serum 7.4 g/dl (6.3-8.2)
[2023-06-01 16:46] LABS: Hemoglobin A1C 5.6 % (4.0-6.0)
[2023-06-01 16:54] LABS: Prostate Specific Ag Screen 1.3 ng/ml (0.0-4.0)
== END ==
LOC: LAB.DROPOF 14:52
PROVIDERS: Visit Provider Family Medicine
DX: R06.02 Shortness of breath; R05.9 Cough, unspecified; J02.9 Acute pharyngitis, unspecified; R09.81 Nasal congestion; Z72.0 Tobacco use; Z79.899 Other long term (current) drug therapy; Z12.5 Encounter for screening for malignant neoplasm of prostate
CPT/HCPCS: 80053; 83036; 84443; 85025; 87636; G0103

== ENCOUNTER 2023-06-05 18:22 | Emergency (ER) | payer BC, SELFPAY ==
[2023-06-05 18:36] VITALS: BP 132/84; PULSE 101; RESP 16; TEMP 37.8; O2SAT 98; BMI 25.8
--- NOTE | 2023-06-05 18:41 | HMH.EDGENADL ---
Discharge Plan Disposition Patient Disposition: Home, Self-Care Condition: Good Prescriptions Prescriptions: New amoxicillin-pot clavulanate 875-125 mg tablet 1 tab PO BID 7 Days Qty: 14 0RF azithromycin [Zithromax TRI-TONY] 500 mg tablet See Rx Instructions .ROUTE .COMPLEX Qty: 9 0RF Rx Instructions: For 250 mg dose pack: take 500 mg today (day 1), then 250 mg for 4 days (days 2-5) prednisone 50 mg tablet 50 mg PO DAILY 5 Days Qty: 5 0RF No Action tizanidine [Zanaflex] 4 mg tablet 4 mg PO BID PRN (Reason: muscle spasticity) Qty: 60 1RF amlodipine 5 mg tablet See Rx Instructions .ROUTE .COMPLEX Qty: 90 3RF Dose Instruction: TAKE ONE TABLET BY MOUTH EVERY DAY Rx Instructions: TAKE ONE TABLET BY MOUTH EVERY DAY Trelegy Ellipta 100-62.5-25 mcg blister with device 1 inh inhalation DAILY Qty: 60 2RF cholecalciferol (vitamin D3) 25 mcg (1,000 unit) tablet 25 mcg PO DAILY Qty: 90 0RF oxycodone-acetaminophen [Percocet] 5-325 mg tablet 1 tab PO BIDP PRN (Reason: pain) Qty: 60 0RF methylprednisolone [Medrol (Tony)] 4 mg tablets,dose pack See Rx Instructions PO PER PKG DIR Qty: 21 0RF Rx Instructions: PO PER PKG DIR uwlllxpyjwwtruv-rhsugdiyt-BE [Bromfed DM] 2-30-10 mg/5 mL syrup 10 ml PO Q6H Qty: 118 0RF losartan 25 mg tablet 25 mg PO DAILY Qty: 30 5RF albuterol sulfate 90 mcg/actuation HFA aerosol inhaler 2 puff inhalation Q6H PRN (Reason: shortness of breath or wheezing) Qty: 8.5 2RF aspirin 81 mg tablet,delayed release (DR/EC) See Rx Instructions .ROUTE .COMPLEX Qty: 90 0RF Dose Instruction: TAKE ONE TABLET BY MOUTH EVERY DAY Rx Instructions: TAKE ONE TABLET BY MOUTH EVERY DAY theophylline 400 mg tablet extended release 24 hr 200 mg PO DAILY Qty: 15 2RF famotidine [Pepcid] 20 mg tablet 20 mg PO BID Qty: 10 0RF Referrals Follow up/Referrals: Anali Iverson RN [Primary Care Provider] - See instructions Activity Restrictions/Add. Instructions Additional Instructions/Restrictions: Please follow-up with your primary care provider. Please return to the emergency department if you develop any new or worsening symptoms or become concerned for your health. Please take antibiotics and steroids as prescribed for treatment of possible pneumonia and COPD exacerbation. Clinical Impressions Clinical Impression: Pneumonia, Acute exacerbation of chronic obstructive pulmonary disease Discharge ED Provider: Tobias Daniels General Adult HPI General Chief complaint: Shortness of Breath/Dyspnea Stated complaint: difficulty breathing, cough Time Seen by Provider: 06/05/23 18:29 Mode of Arrival: Ambulatory Source of Information: Patient Limitations: No Limitations Description of Symptoms (Recalled from ER Triage Doc. by RN): 53 yo M presents to ED with c/o shortness of air. pt reports symptoms began last thursday. pt was seen by pcp and tested for covid and flu both which were negative. pt does have copd at baseline. History of Present Illness HPI narrative: 53-year-old male presents with worsening intermittently productive cough and shortness of breath for approximate the last week. Reports some chills but no fever at home. Reports history of COPD. Denies chest pain or abdominal pain or any other concerns at this time. Related Data Previous Rx's Medication Instructions Recorded famotidine 20 mg tablet (Pepcid) 20 mg PO BID #10 tabs 05/14/22 amlodipine 5 mg tablet See Rx Instructions .Route 08/01/22 .COMPLEX #90 tabs tizanidine 4 mg tablet (Zanaflex) 4 mg PO BID PRN muscle spasticity 08/01/22 #60 tabs albuterol sulfate 90 mcg/actuation 2 puff inhalation Q6H PRN 02/03/23 aerosol inhaler shortness of breath or wheezing #8.5 grams aspirin 81 mg tablet,delayed See Rx Instructions .Route 03/12/23 release .COMPLEX #90 tabs losartan 25 mg tablet 25 mg PO DAILY #30 tabs 05/05/23 theophylline 400 mg 200 mg PO MALA
--- NOTE | 2023-06-05 18:42 | PC.NURSE ---
Dr Daniels at
--- NOTE | 2023-06-05 18:42 | ECG_ITS ---
APPROVED REPORT Exam: Resting ECG HR:91 bpm ECG Measurements Heart Rate 91 AXES WV 144 P 84 QRSd 90 QRS 98 QT 314 T 49 QTc 363 Conclusion SINUS RHYTHM BORDERLINE RIGHT AXIS DEVIATION [QRS AXIS > 90] BORDERLINE ECG UNCONFIRMED REPORT Electronically signed by : Roger Vang MD 06/06/2023 09:56:54
--- NOTE | 2023-06-05 18:46 | XR_ITS ---
PROCEDURE INFORMATION: Exam: XR Chest Exam date and time: 06/05/2023 7:10 PM Age: 53 years old Clinical indication: Cough and shortness of breath; Additional info: SOA, copd, cough TECHNIQUE: Imaging protocol: Radiologic exam of the chest. Views: 2 views. COMPARISON: CR XR CHEST 2V 05/14/2022 1:45 PM FINDINGS: Lungs: Hyperexpanded lungs without infiltrate. Pleural spaces: Unremarkable. No pleural effusion. No pneumothorax. Heart/Mediastinum: Unremarkable. No cardiomegaly. Bones/joints: Unremarkable. IMPRESSION: Hyperexpanded lungs without infiltrate.
[2023-06-05 19:00] VITALS: BP 129/86; PULSE 88; O2SAT 98
[2023-06-05 19:08] VITALS: PULSE 80; PULSE 95
--- NOTE | 2023-06-05 19:19 | PC.NURSE ---
ambulating to radiology with Arnaldo loyola
--- NOTE | 2023-06-05 19:28 | PC.NURSE ---
pt back to room from radiology
[2023-06-05 20:00] VITALS: BP 129/82; PULSE 98; O2SAT 93
--- NOTE | 2023-06-05 20:12 | PC.NURSE ---
Patient states he is feeling better after nebs. Provided blanket for comfort.
[2023-06-05 20:36] VITALS: BP 125/81; PULSE 112; RESP 20; TEMP 38.2; O2SAT 93
== END 2023-06-05 20:50 | disposition home or self-care (01) ==
PROVIDERS: Emergency Provider Emergency Medicine
DX: J44.1 Chronic obstructive pulmonary disease with (acute) exacerbation (principal); J18.9 Pneumonia, unspecified organism; I10 Essential (primary) hypertension; Z87.891 Personal history of nicotine dependence
CPT/HCPCS: 71046; 93005; 99284

== ENCOUNTER → 2023-06-25 07:46 | Outpatient (CLI) | payer BC, SELFPAY ==
--- NOTE | 2023-06-25 07:48 | CA_ITS ---
FINAL REPORT CLINICAL HISTORY: HTN COMPARISON: None FINDINGS: Aorta velocity: 86 cm/sec Right kidney: 11 cm. No hydronephrosis is identified. There is a 1.3 cm cyst present in the right kidney. Right intrarenal RI: 0.7 Right renal artery velocity: 134 cm/sec. Right RAR (Renal artery-Aortic Ratio): 1.58 Left Kidney: 10.8 cm. No evidence of hydronephrosis or mass. Left intrarenal RI: 0.67 Left renal artery velocity: 132 cm/sec. Left RAR (Renal Artery-Aortic Ratio): 1.55 IMPRESSION: No evidence of significant renal artery stenosis. 1.3 cm right renal cyst. CT angiogram or postcontrast MR angiogram would be more sensitive for evaluation of possible renal artery stenosis. Reviewed, Interpreted and Dictated by Edgar Miller MD Transcribed by Alberta Benavidez Authenticated and [facility]
== END ==
LOC: RT 07:48
PROVIDERS: Visit Provider Physician Assistant
DX: I10 Essential (primary) hypertension (principal); Z87.891 Personal history of nicotine dependence
CPT/HCPCS: 93976

== ENCOUNTER 2023-07-08 11:57 | Outpatient (CLI) | payer BC, SELFPAY ==
[2023-07-08 16:16] LABS: Amphetamine/Metha Screen,Urine Negative ng/ml (<1000); Barbiturates Screen,Urine Negative ng/ml (<200); Benzodiazepines Screen,Urine Negative ng/ml (<200); Cocaine Screen,Urine Negative ng/ml (<300); Methadone Screen,Urine Negative ng/ml (<300); Opiate Screen,Urine Negative ng/ml (<300); Phencyclidine Screen,Urine Negative ng/ml (<25)
[2023-07-08 17:23] LABS: Cannabinoid Screen,Urine Negative ng/ml (<50)
== END 2023-07-08 23:59 ==
LOC: LAB.DROPOF 11:58
PROVIDERS: PCP Family Medicine; Visit Provider Family Medicine
DX: Z79.899 Other long term (current) drug therapy (principal)
CPT/HCPCS: 80307

== ENCOUNTER 2023-07-13 12:44 | Outpatient (CLI) | payer BC, SELFPAY ==
[2023-07-13 15:10] LABS: Blood Urea Nitrogen 11 mg/dl (9-20); Estimated Glomerular Filt Rate 88 ml/min (>60); GFR (African American) 106 ML/MIN (>60)
[2023-07-14 08:14] LABS: PSA, Free 0.99 ng/mL; Prostate Specific Ag 2.5 ng/mL (0.0-4.0)
== END 2023-07-13 23:59 ==
LOC: LAB 12:45
PROVIDERS: PCP Family Medicine; Visit Provider Urology
DX: N28.1 Cyst of kidney, acquired (principal)
CPT/HCPCS: 36415; 82565; 84153; 84154; 84520

== ENCOUNTER 2023-07-29 14:46 | Outpatient (CLI) | payer BC, SELFPAY ==
--- NOTE | 2023-07-29 14:46 | CT_ITS ---
FINAL REPORT TECHNIQUE: Axial images were obtained from the lung apex to the mid abdomen by computed tomography. This study was performed with techniques to keep radiation doses as low as reasonably achievable (ALARA). Individualized dose reduction techniques using automated exposure control or adjustment of mA and/or kV according to the patient's size were employed. CLINICAL HISTORY: lung cancer screening former smoker x 1 year 2ppd x 30years COMPARISON: 04/30/2022 FINDINGS: CHEST CT LOW DOSE CTDI vol (mGy): 2.90 DLP (mGy-cm): 113.85 There is no axillary adenopathy. There is no hilar or mediastinal adenopathy. The heart is normal in size. There is no pericardial or pleural effusion. There is a 7 x 5 mm nodule in the superior segment of the left lower lobe, previously measured 6 x 4 mm. This may represent minimal interval growth. Emphysematous changes are seen. There is mild right lower lobe scarring. Limited images of the upper abdomen are unremarkable. IMPRESSION: Questionable minimal interval growth in the left lower lobe nodule. Lung RADS category 3. Recommend 6 month follow-up low-dose chest CT. Reviewed, Interpreted and Dictated by Bianka Andres MD Transcribed by Elsi Ruby Authenticated and [facility]
== END 2023-07-29 23:59 ==
LOC: RAD 14:46
PROVIDERS: PCP Internal Medicine; Visit Provider Family Medicine
DX: J44.1 Chronic obstructive pulmonary disease with (acute) exacerbation (principal); Z87.891 Personal history of nicotine dependence
CPT/HCPCS: 71271

== ENCOUNTER 2023-08-10 14:21 | Outpatient (CLI) | payer BC, SELFPAY ==
[2023-08-10 14:23] LABS: Microscopic, Urine URINE MICROSCOPIC (MICROSCOPIC)
[2023-08-10 14:38] LABS: Appearance,Urine CLEAR (Clear); Bilirubin,Urine Negative (Negative); Blood, Urine Negative (Negative); Color,Urine YELLOW (Yellow); Glucose,Urine (UA) Negative (Negative); Ketones,Urine Negative (Negative); Leukocyte Esterase,Urine Negative (Negative); Nitrate,Urine Negative (Negative); Protein,Urine Negative (Negative); Urobilinogen,Urine 0.2 EU/dl (0.2)
== END 2023-08-10 23:59 ==
LOC: LAB.DROPOF 14:21
PROVIDERS: PCP Urology; Visit Provider Urology
DX: N28.1 Cyst of kidney, acquired (principal)
CPT/HCPCS: 81001

== ENCOUNTER → 2023-10-21 06:49 | Outpatient (CLI) | payer BC, SELFPAY | LOC: SL 06:51 | PROVIDERS: PCP Physician Assistant; Visit Provider Physician Assistant | DX: G47.30 Sleep apnea, unspecified (principal); R40.0 Somnolence; G47.36 Sleep related hypoventilation in conditions classified elsewhere; R00.1 Bradycardia, unspecified | CPT/HCPCS: G0399 ==

== ENCOUNTER 2024-01-27 08:04 | Outpatient (CLI) | payer BC, SELFPAY ==
[2024-01-28 08:24] LABS: Prostate Specific Ag 1.5 ng/mL (0.0-4.0)
== END 2024-01-27 23:59 | disposition home or self-care (01) ==
LOC: LAB 08:04
PROVIDERS: PCP Family Medicine; Visit Provider Urology
DX: N40.1 Benign prostatic hyperplasia with lower urinary tract symptoms (principal)
CPT/HCPCS: 36415; 84153; 84154

== ENCOUNTER 2024-03-01 15:32 | Outpatient (CLI) | payer BC, SELFPAY ==
[2024-03-01 18:53] LABS: Influenza A, PCR Not Detected (NotDetected); Influenza B, PCR Not Detected (NotDetected)
[2024-03-01 19:38] LABS: Coronavirus 19, PCR Detected (NotDetected)
== END 2024-03-01 23:59 | disposition home or self-care (01) ==
LOC: LAB.DROPOF 03-02 15:33
PROVIDERS: PCP Family Medicine; Visit Provider Family Medicine
DX: U07.1 COVID-19 (principal)
CPT/HCPCS: 87636

== ENCOUNTER 2024-03-28 11:00 | Outpatient (CLI) | payer BC, SELFPAY ==
[2024-03-28 11:52] LABS: Basophils % 0.5 % (0.1-2.0); Eosinophils # 0.1 K/mm3 (0.0-0.4); Eosinophils % 1.9 % (0.1-12.0); Hematocrit 55.9 % (42.0-52.0); Lymphocytes # 1.8 K/mm3 (0.7-4.5); Lymphocytes % 26.3 % (10-50); Mean Corpuscular HGB Conc 33.8 g/dL (31.8-35.4); Mean Corpuscular Hemoglobin 32.5 pg (27.0-31.2); Mean Corpuscular Volume 96.4 fl (80-94); Mean Platelet Volume 6.8 fl (7.4-10.4); Monocytes # 0.7 K/mm3 (0.1-1.0); Monocytes % 10.7 % (1.7-9.3); Neutrophils % 60.6 % (37.0-80.0); Platelet Count 270 K/mm3 (142-424); Red Blood Count 5.79 M/mm3 (4.60-6.20); White Blood Count 6.7 K/mm3 (4.8-10.8)
[2024-03-28 12:06] LABS: Alanine Aminotransferase 27 U/L (12-78); Albumin Level 4.5 g/dl (3.5-5.0); Albumin/Globulin Ratio 1.6 (1.1-1.8); Alkaline Phosphatase 130 U/L (38-126); Anion Gap 11.6 mEq/L (5-15); Aspartate Amino Transferase 26 U/L (17-59); Bilirubin,Total 0.6 mg/dl (0.2-1.3); Blood Urea Nitrogen 15 mg/dl (9-20); Calcium 9.9 mg/dl (8.4-10.2); Carbon Dioxide 20 mmol/L (22.0-30.0); Chloride 104 mmol/L (98-107); Chol/HDL Ratio 4.4 (1-3.5); Cholesterol 169 mg/dl (140-200); Estimated Glomerular Filt Rate 78 ml/min (>60); GFR (African American) 94 ML/MIN (>60); Globulin 2.8 g/dL (1.3-3.2); Glucose 103 mg/dl (74-100); HDL Cholesterol 38 mg/dl (40-60); Potassium 3.6 mmoL/L (3.5-5.1); Sodium 132 mmol/L (136-145); Total Protein,Serum 7.3 g/dl (6.3-8.2); Triglycerides 159 mg/dl (30-150); VLDL Cholesterol 32 mg/dL (0-40)
[2024-03-28 12:17] LABS: Direct LDL Cholesterol 102.54 mg/dL (100-129)
[2024-03-28 12:29] LABS: Hemoglobin 18.7 g/dL (14.1-18.0)
[2024-03-28 12:37] LABS: Thyroid Stimulating Hormone 1.92 uIU/mL (0.465-4.68)
== END 2024-03-28 23:59 | disposition home or self-care (01) ==
LOC: LAB 13:25
PROVIDERS: PCP Family Medicine; Visit Provider Family Medicine
DX: Z00.00 Encounter for general adult medical examination without abnormal findings (principal)
CPT/HCPCS: 36415; 80050; 80053; 80061; 84443; 85025

== ENCOUNTER → 2024-04-04 12:20 | Outpatient (REF) | payer BC, SELFPAY ==
[2024-04-04 12:24] LABS: Adenovirus F 40/41, stool Not Detected (NotDetected); Astrovirus Not Detected (NotDetected); Campylobacter Not Detected (NotDetected); Clostridium Difficile A/B, PCR Not Detected (NotDetected); Cryptosporidium Not Detected (NotDetected); Cyclospora Cayetanesis Not Detected (NotDetected); Entamoeba histolytica Not Detected (NotDetected); Enteroaggregative E coli Not Detected (NotDetected); Enteropathogenic E coli Not Detected (NotDetected); Enterotoxigenic E coli Not Detected (NotDetected); Norovirus Not Detected (NotDetected); Plesimonas Shigalloides, PCR Not Detected (NotDetected); Rotavirus A Not Detected (NotDetected); Salmonella, PCR Not Detected (NotDetected); Sapovirus Not Detected (NotDetected); Shiga-like toxin E coli Not Detected (NotDetected); Shigella Enterovasive E coli Not Detected (NotDetected); Vibrio Cholerae Not Detected (NotDetected); Vibrio, PCR Not Detected (NotDetected); Yersinia Entercolitica, PCR Not Detected (NotDetected)
[2024-04-04 17:02] LABS: Giardia lamblia Detected (NotDetected)
== END ==
LOC: LAB 12:20
PROVIDERS: Visit Provider Family Medicine
DX: R19.7 Diarrhea, unspecified (principal); A08.4 Viral intestinal infection, unspecified
CPT/HCPCS: 87507

== ENCOUNTER 2024-04-14 08:47 | Outpatient (CLI) | payer BC, SELFPAY ==
[2024-04-14 08:52] LABS: MANUAL DIFFERENTIAL MANUAL DIFFERENTIAL (MANUAL DIFF)
[2024-04-14 09:13] LABS: Basophils # 0.1 K/mm3 (0-0.2); Basophils % 0.7 % (0.1-2.0); Eosinophils # 0.1 K/mm3 (0.0-0.4); Eosinophils % 1.1 % (0.1-12.0); Hematocrit 46.1 % (42.0-52.0); Hemoglobin 15.4 g/dL (14.1-18.0); Lymphocytes # 1.8 K/mm3 (0.7-4.5); Lymphocytes % 21.5 % (10-50); Mean Corpuscular HGB Conc 33.3 g/dL (31.8-35.4); Mean Corpuscular Hemoglobin 31.7 pg (27.0-31.2); Mean Corpuscular Volume 95.2 fl (80-94); Mean Platelet Volume 6.9 fl (7.4-10.4); Monocytes # 0.4 K/mm3 (0.1-1.0); Neutrophils # 6.1 K/mm3 (1.8-7.8); Neutrophils % 71.7 % (37.0-80.0); Platelet Count 400 K/mm3 (142-424); Red Blood Count 4.84 M/mm3 (4.60-6.20); White Blood Count 8.4 K/mm3 (4.8-10.8)
[2024-04-14 10:34] LABS: Eosinophils % 1 % (0-3); Lymphocytes % 27 % (10-50); Monocytes % 2 % (2-9); Neutrophils % 70 % (42-76); Platelet Estimate Normal; RBC Morphology Normal; Total Cells Counted 100
== END 2024-04-14 23:59 | disposition home or self-care (01) ==
LOC: LAB 08:47
PROVIDERS: PCP Family Medicine; Visit Provider Family Medicine
DX: D75.1 Secondary polycythemia (principal)
CPT/HCPCS: 36415; 85007; 85014; 85018; 85048; 85049

== ENCOUNTER 2024-07-22 10:58 | Outpatient (CLI) | payer BC, SELFPAY ==
--- NOTE | 2024-07-22 11:01 | XR_ITS ---
FINAL REPORT CLINICAL HISTORY: wheeze, sob,cough COMPARISON: 05/14/2022 FINDINGS: CHEST 2 VIEWS PA AND LATERAL The heart is normal in size. The mediastinum is unremarkable. Loop recording device is seen in projection of the mediastinum. The lungs are clear. There is no pneumothorax. IMPRESSION: No acute process. Reviewed, Interpreted and Dictated by Edgar Miller MD Transcribed by Elsi Ruby Authenticated and [facility]
== END 2024-07-22 23:59 | disposition home or self-care (01) ==
LOC: RAD 10:59
PROVIDERS: PCP Family Medicine; Visit Provider Family Medicine
DX: J44.1 Chronic obstructive pulmonary disease with (acute) exacerbation (principal); R06.2 Wheezing
CPT/HCPCS: 71046

== ENCOUNTER 2024-09-13 14:00 | Outpatient (CLI) | payer BC, SELFPAY ==
[2024-09-13 15:53] LABS: Blood Urea Nitrogen 11 mg/dl (9-20); Estimated Glomerular Filt Rate 77 ml/min (>60); GFR (African American) 94 ML/MIN (>60)
[2024-09-14 14:09] LABS: PSA, Free 0.51 ng/mL; Prostate Specific Ag 1.8 ng/mL (0.0-4.0)
== END 2024-09-13 23:59 | disposition home or self-care (01) ==
LOC: LAB 14:01
PROVIDERS: PCP Family Medicine; Visit Provider Urology
DX: N28.1 Cyst of kidney, acquired (principal); R39.89 Other symptoms and signs involving the genitourinary system
CPT/HCPCS: 36415; 82565; 84153; 84154; 84520

== ENCOUNTER 2024-09-21 10:42 | Outpatient (CLI) | payer BC, SELFPAY ==
--- NOTE | 2024-09-21 11:00 | US_ITS ---
FINAL REPORT TECHNIQUE: Ultrasound images of the kidneys and bladder were obtained. CLINICAL HISTORY: renal cyst COMPARISON: None FINDINGS: The right kidney measures 11.1 cm in length. It is normal in echogenicity. There is no hydronephrosis. The left kidney measures 10.6 cm in length. It is normal in echogenicity. There is no hydronephrosis. IMPRESSION: No hydronephrosis or focal renal mass seen in either kidney. Reviewed, Interpreted and Dictated by Kamila Abraham MD Transcribed by Alberta Benavidez Authenticated and [facility]
== END 2024-09-21 23:59 | disposition home or self-care (01) ==
LOC: RAD 10:43
PROVIDERS: PCP Family Medicine; Visit Provider Urology
DX: N28.1 Cyst of kidney, acquired (principal)
CPT/HCPCS: 76770

== ENCOUNTER 2024-10-24 15:17 | Outpatient (CLI) | payer BC, SELFPAY ==
--- NOTE | 2024-10-24 15:19 | XR_ITS ---
FINAL REPORT TECHNIQUE: Chest PA & Lateral CLINICAL HISTORY: sob, cough, loop recorder COMPARISON: 07/22/2024 FINDINGS: 2 views of the chest were performed. The heart size is normal. A loop recorder is present. The lungs are mildly hyperinflated. No infiltrates are noted. There are no pleural effusions. There is no pneumothorax. The bony thorax appears intact. IMPRESSION: No acute cardiopulmonary process. Reviewed, Interpreted and Dictated by Edgar Miller MD Transcribed by Iesha Gaitan Authenticated and [facility]
[2024-10-24 18:28] LABS: Basophils % 0.4 % (0.1-2.0); Eosinophils # 0.1 Kmm3 (0.0-0.4); Eosinophils % 1.3 % (0.1-12.0); Hematocrit 49.7 % (42.0-52.0); Hemoglobin 17.5 g/dL (14.1-18.0); Lymphocytes # 1.6 K/mm3 (0.7-4.5); Lymphocytes % 15.1 % (10-50); Mean Corpuscular HGB Conc 35.2 g/dL (31.8-35.4); Mean Corpuscular Volume 90.9 fl (80-94); Mean Platelet Volume 9.8 fl (7.4-10.4); Monocytes # 0.6 K/mm3 (0.1-1.0); Monocytes % 5.8 % (1.7-9.3); Neutrophils # 8.4 K/mm3 (1.8-7.8); Neutrophils % 77.1 % (37.0-80.0); Nucleated Red Blood Cells # 0 10^3/uL; Nucleated Red Blood Cells % 0 %; Platelet Count 303 K/mm3 (142-424); Red Blood Count 5.47 M/mm3 (4.60-6.20); Red Cell Distribution Width 12.3 % (11.5-17.5); Red Cell Distribution Width-SD 41.1 fL; White Blood Count 10.8 K/mm3 (4.8-10.8)
[2024-10-24 18:47] LABS: Alanine Aminotransferase 19 U/L (12-78); Albumin Level 4.5 g/dl (3.5-5.0); Albumin/Globulin Ratio 1.7 (1.1-1.8); Alkaline Phosphatase 112 U/L (38-126); Anion Gap 10.2 mEq/L (5-15); Aspartate Amino Transferase 23 U/L (17-59); Bilirubin,Total 0.6 mg/dl (0.2-1.3); Blood Urea Nitrogen 13 mg/dl (9-20); Calcium 9.7 mg/dl (8.4-10.2); Carbon Dioxide 24 mmol/L (22.0-30.0); Chloride 106 mmol/L (98-107); Estimated Glomerular Filt Rate 100 ml/min (>60); GFR (African American) 121 ML/MIN (>60); Globulin 2.7 g/dL (1.3-3.2); Glucose 97 mg/dl (74-100); Potassium 4.2 mmoL/L (3.5-5.1); Sodium 136 mmol/L (136-145); Total Protein,Serum 7.2 g/dl (6.3-8.2)
== END 2024-10-24 23:59 | disposition home or self-care (01) ==
LOC: RAD 15:18
PROVIDERS: PCP Family Medicine; Visit Provider Family Medicine
DX: J44.1 Chronic obstructive pulmonary disease with (acute) exacerbation (principal)
CPT/HCPCS: 71046; 80053; 85025

== ENCOUNTER 2025-03-21 09:36 | Outpatient (CLI) | payer BC, SELFPAY ==
--- OUTSIDE RECORDS SUMMARY | 2025-03-21 09:42 | XMS_ITS | Encounter Summary ---
Author Organization Healthcare Address [address] [place] [address] Care Team Providers Care Equipment Driver Name Role Phone Pcp, No Primary Care Provider Anali Mcdonough APRN Primary Care Provider Encounter Details Date Type Department Care Team (Late st Contact Info) Description 07/29/2023 Orders Only External Location [address] [place] [address] Provider, External Social History Tobacco Use Types Packs/Day Years Used Date Smoking Tobacco: Never Assessed Sex and Gender Information Value Date Recorded Sex Assigned at Not on file Legal Sex Male 8:49 PM EDT Gender Identity Not on file Sexual Orientation Not on file documented as of this encounter Plan of Treatment Upcoming Encounters Date Type Department Care Team (Late st Contact Info) Description 08/31/2025 8:30 AM EST Appointment [facility] [address] [place] [address] 08/31/2025 10:00 AM EST Office Visit [facility] [address] [place] [address] Eliezer Marrufo MD [address] [place] [address] documented as of this encounter Procedures Procedure Name Priority Date/Time Associated Diagnosis Comments CT OUTSIDE IMAGES 07/29/2023 3:20 PM EST documented in this encounter Results * CT OUTSIDE IMAGES (07/29/2023 3:20 PM EST) Anatomical Region Laterality Modality Computed Tomogra phy 07/29/2023 3:20 PM EST us External Provider IMG CT PROCEDURES Final Result documented in this encounter Visit Diagnoses Not on filedocumented in this encounter Additional Health Concerns Infection Onset Date Last Indicated Resolved Time Influenza 03/03/2024 03/03/2024 03/31/2024 5:23 AM EDT documented as of this encounter Care Teams Equipment Driver Relationship Specialty Start Date End Date Pcp, [place] [address] PCP - General Family Medicine 01/14/24 03/02/24 Anali Iverson APRN [address] [place] [address] PCP - General 03/03/24 documented as of this encounter
--- OUTSIDE RECORDS SUMMARY | 2025-03-21 09:42 | XMS_ITS | Clinical Summary ---
Author Organization [facility] Address [address] [place] [address] Care Team Providers Care Principal Bioinformatics Specialist Name Role Phone Anali Iverson APRN Primary Care Provider [phone] Allergies Active Allergy Reactions Criticality Noted Date Comments Hydrocodone Other - please docum ent in the comment field Low 01/23/2011 nausea Medications Aspirin Low Dose 81 MG EC tablet Take 1 tablet (81 mg) by mouth daily. 4 Active celecoxib (CeleBREX) 100 MG capsule Take 1 capsule (100 mg) by mouth 2 (two) times a day. 4 Active cholecalciferol 25 MCG (1000 UT) tablet Take 1 tablet (1,000 Units) by mouth daily. 3 Active losartan (Cozaar) 25 MG tablet Take 2 tablets (50 mg) by mouth daily. 4 Active amLODIPine (Norvasc) 5 MG tablet Take 1 tablet (5 mg) by mouth daily. 4 Active theophylline ER (Uniphyl) 400 MG 24 hr tablet TAKE 1/2 TABLET BY MOUTH EVERY TWELVE HOURS 4 Active tamsulosin (Flomax) 0.4 MG 24 hr capsule Take 1 capsule (0.4 mg) by mouth 1 (one) time each day. 4 Active amoxicillin-cla vulanate (Augmentin) 875-125 MG tablet TAKE ONE TABLET BY MOUTH TWICE DAILY -- FINISH ALL MEDICINE -- 4 Active methylPREDNISol one (Medrol Dospak) 4 MG tablets TAKE ACCORDING TO PACKAGE INSTRUCTIONS --TAKE WITH FOOD-- -- FINISH ALL MEDICINE -- 4 Active Paxlovid Oral Therapy Pack TAKE THREE TABLETS BY MOUTH TWICE DAILY FOR 5 DAYS ACCORDING TO PACKAGE INSTRUCTIONS do not take tamsulosin while ON paxlovid 4 Active predniSONE (Deltasone) 20 MG tablet TAKE ONE TABLET BY MOUTH TWICE DAILY --TAKE WITH FOOD-- 4 Active oxybutynin XL (Ditropan-XL) 10 MG 24 hr tablet Take 1 tablet (10 mg) by mouth daily. 5 Active Trelegy Ellipta 200-62.5-25 MCG/ACT aerosol powder Inhale 1 puff daily. 60 each 11 5 09/02/19 26 Active albuterol 108 (90 Base) MCG/ACT inhaler Inhale 2 puffs 1 (one) time as needed for wheezing for up to 1 dose. 1 each 5 Active Active Problems Problem Noted Date Diagnosed Date Vitamin deficiency 03/03/2024 Hypertension 03/03/2024 Endothelial dysfunction of coronary artery 03/03 Daytime somnolence 03/03/2024 COPD mixed type 03/03/2024 Acute exacerbation of chronic obstructive pulmon adam disease 03/03/2024 Resolved Problems Problem Noted Date Diagnosed Date Resolved Date Pneumonia 03/03/2024 03/19/2025 Influenza A 03/03/2024 03/19/2025 Bronchitis 03/03/2024 03/19/2025 Acute hypoxemic respiratory failure 03/03/2024 03/19/2025 Abdominal wall pain 03/03/2024 03/19/20 25 Immunizations Immunization Administration Dates Next Due Moderna COVID-19 Vaccine (Immigration Patrol Inspector) 12+ years ,05/24/2021 Family History Medical History Relation Name Comments Diabetes Father Diabetes Mother Relation Name Status Comments Father Mother Social History Tobacco Use Types Packs/Day Years Used Date Smoking Tobacco: Former Cigarettes 1.5 25 0 10/05/1997 - 10/02/2022 Passive Smoke Exposure: Current Smokeless Tobacco: Never Tobacco Cessation:Counseling Given: Not Answered Alcohol Use Standard Drinks/Week Comments Never 0 (1 standard drink = 0.6 oz pur e alcohol) PHQ-2 Answer Date Recorded Patient Health Questionnaire-2 Score 0 09/01/2024 PHQ-9 Answer Date Recorded Patient Health Questionnaire-9 Score 0 09/01/2024 Sex and Gender Information Value Date Recorded Sex Assigned at Not on file Legal Sex Male 8:49 PM EDT Gender Identity Not on file Sexual Orientation Not on file Last Filed Vital Signs Vital Sign Reading Time Taken Comments Blood Pressure 102/61 09/01/2024 11:05 AM EST Pulse 58 09/01/2024 11:05 AM EST Temperature 36.6 C (97.9 F) 09/01/2024 11:05 AM EST Respiratory Rate 16 09/01/2024 11:05 AM EST Oxygen Saturation 95% 09/01/2024 11:05 AM EST Inhaled Oxygen Concentration - - Weight 72 kg (158 lb 11.7 oz) 09/01/2024 11:05 A M EST Height 167.6 cm (5' 6 ) 09/01/2024 11:05 AM EST Body Mass Index 25.62 09/01/2024 11:05 AM EST Plan of Treatment Upcoming Encounters Date Type Department Care Team (Late st Contact Info) Description 08/31/2025 8:30 AM EST Appointment [facility] [address] [place] [address] 08/31/2025 10:00 AM EST Office Visit [place] [facility] [address], [address] [place] [address] Eliezer Marrufo MD [address] [place] [address] Health Maintenance Due Date Last Done Comments [facility]-HIV Screening 1968 [facility]-Hepatitis C Screening 1968 [facility]-Infant/Child/Adol SDOH Screenings 1968 [facility]- SDOH Screenings 1986 [facility]-Adult SDOH Screenings 1986 [facility]-DTaP,Tdap,and Td Vaccine s (1 - Tdap) 1987 [facility]-Hepatitis B Vaccines (1 of 3 - 19+ 3-dose series) 1987 [facility]-Pneumococcal Vaccine: 50 + Years (1 of 2 - PCV) 1987 [facility]-Zoster Vaccines (1 of 2) 1987 CT Colonography 2013 Colonoscopy 2013 FIT-DNA 2013 FIT 2013 FOBT 2013 Sigmoidoscopy 2013 [facility]-Colorectal Cancer Screening 2013 [id number] Vaccine (3 - Moderna risk series) 08/17/2021 07/20/2021, 05/24/2021 [facility]-Influenza Vaccine (#1) 2025 [facility]-Depression Screening 09/01/2025 025, 09/01/2024 [facility]-Lung Cancer Screening 09/01/20252024, 01/14/2024 [facility]-Obesity Intervention Completed 025, 03/03/2024, 10/15/2023 HPV Vaccines Aged Out No longer eligi ble based on patient's age to complete this topic [facility]-HIB Vaccines Aged Out No longer e ligible based on patient's age to complete this topic [facility]-Hepatitis A Vaccines Aged Out No longer eligible based on patient's age to complete this topic UKY-IPV Vaccines Aged Out No longer e ligible based on patient's age to complete this topic [facility]-Rotavirus Vaccines Aged Out No lo nger eligible based on patient's age to complete this topic Procedures Procedure Name Priority Date/Time Associated Diagnosis Comments CT CHEST WO IV CONTRAST Routine 09/01/2024 10:11 AM EST Lung nodule seen on imaging study from Last 3 Months or Most Recently Relevant to Health Maintenance Results * CT Chest wo IV Contrast (09/01/2024 10:11 AM EST) Anatomical Region Laterality Modality Chest Computed Tomogra phy Impressions 09/01/2024 11:20 AM EST Previously seen right apical nodule has resolved. Stable left lower lobe nodule. No new suspicious nodules. If high risk, a follow-up in 12 months would be recommended. CRITICAL RESULT: No. COMMUNICATION: Per this written report. Drafted by Gavin Brand MD on 09/01/2024 11:17 AM Final report signed by Gavin Brand MD on 09/01/2024 11:20 AM Narrative 09/01/2024 11:20 AM EST CLINICAL INDICATION: Abnormal xray - lung nodule (Age >= 35y) TECHNIQUE: Multiple CT helical images were obtained from thoracic inlet through upper abdomen without administration of IV contrast. Total DLP (Dose-Length Product): 27.13 mGy.cm. Please note: The reported value represents the total of one or more individual components during the CT acquisition on this date and at this time, and as such, the same value may appear in more than one CT report depending on the interpreting/reporting physicians. COMPARISON: 01/14/2024 FINDINGS: Mediastinum and Pleura: No significant mediastinal adenopathy. Stable calcified subcarinal lymph node. Small coronary artery calcifications. No pleural or pericardial effusion. Lungs: Centrilobular emphysema both lungs, predominantly in upper lobes. Stable bilateral linear scarring or atelectasis. Previously seen 4 mm right upper lobe nodule has resolved. Stable 7 mm superior segment left lower pulmonary lobe. No new suspicious nodules. Upper Abdomen: No suspicious lesions in the partially visualized upper abdomen. Musculoskeletal: No suspicious lytic or sclerotic lesion. Procedure Note Gavin Brand MD - 09/01/2024 CLINICAL INDICATION: Abnormal xray - lung nodule (Age >= 35y) TECHNIQUE: Multiple CT helical images were obtained from thoracic inlet through upperabdomen without administration of IV contrast. Total DLP (Dose-Length Product): 27.13 mGy.cm. Please note: The reportedvalue represents the total of one or more individual components during theCT acquisition on this date and at this time, and as such, the same valuemay appear in more than one CT report depending on theinterpreting/reporting physicians. COMPARISON: 01/14/2024 FINDINGS: Mediastinum and Pleura: No significant mediastinal adenopathy. Stablecalcified subcarinal lymph node. Small coronary artery calcifications. Nopleural or pericardial effusion. Lungs: Centrilobular emphysema both lungs, predominantly in upper lobes.Stable bilateral linear scarring or atelectasis. Previously seen 4 mmright upper lobe nodule has resolved. Stable 7 mm superior segment leftlower pulmonary lobe. No new suspicious nodules. Upper Abdomen: No suspicious lesions in the partially visualized upperabdomen. Musculoskeletal: No suspicious lytic or sclerotic lesion. IMPRESSION: Previously seen right apical nodule has resolved. Stable left lower lobenodule. No new suspicious nodules. If high risk, a follow-up in 12 monthswould be recommended. CRITICAL RESULT: No. COMMUNICATION: Per this written report. Drafted by Gavin Brand MD on 09/01/2024 11:17 AM Final report signed by Gavin Brand MD on 09/01/2024 11:20 AM Eliezer Marrufo MD IMG CT PROCEDURES Final Resul t from Last 3 Months or Most Recently Relevant to Health Maintenance Insurance ANTHEM Care Teams Principal Bioinformatics Specialist Relationship Specialty Start Date End Date Anali Iverson APRN [address] [place] [address] PCP - General 03/03/24
--- NOTE | 2025-03-21 09:52 | XR_ITS ---
FINAL REPORT CLINICAL HISTORY: right flank pain FINDINGS: A single supine view the abdomen was obtained. The bowel gas pattern is nonspecific but nonobstructive. No renal stones are identified. Osseous structures are within normal limits. IMPRESSION: Nonspecific but nonobstructive bowel gas pattern. Reviewed, Interpreted and Dictated by Kamila Abraham MD Transcribed by Elsi Ruby Authenticated and [facility]
--- NOTE | 2025-03-21 10:00 | US_ITS ---
FINAL REPORT TECHNIQUE: Sonographic images of the kidneys and retroperitoneum were obtained in the longitudinal and transverse planes. CLINICAL HISTORY: .rt back pain FINDINGS: The right kidney measures 10.5 cm in hnjc-fl-jxdw length. No hydronephrosis or stone. There is a small cyst arising from the lower pole measuring 13 mm. Cortical echogenicity and thickness are normal. The left kidney measures 10.5 cm in ettl-uv-cyhh length. No hydronephrosis, mass, or stone. Cortical echogenicity and thickness are normal. IMPRESSION: Morphologically normal kidneys bilaterally. Reviewed, Interpreted and Dictated by Kamila Abraham MD Transcribed by Elsi Ruby Authenticated and . [facility]
== END 2025-03-21 23:59 | disposition home or self-care (01) ==
LOC: RAD 09:38
PROVIDERS: PCP Family Medicine; Visit Provider Urology
DX: R93.3 Abnormal findings on diagnostic imaging of other parts of digestive tract (principal); R10.9 Unspecified abdominal pain
CPT/HCPCS: 74018; 76770

== ENCOUNTER 2025-04-25 10:55 | Outpatient (CLI) | payer BC, SELFPAY ==
--- OUTSIDE RECORDS SUMMARY | 2025-04-25 10:59 | XMS_ITS | Clinical Summary ---
Author Organization [facility] Address [address] [place] [address] Care Team Providers Care Cardiovascular Surgical Tech Name Role Phone Anali Iverson APRN Primary Care Provider [phone] Allergies Active Allergy Reactions Criticality Noted Date [...] Administration Dates Next Due Moderna COVID-19 Vaccine (Yoker Machine Operator) 12+ years ,05/24/2021 Family History Medical History [...] EST Appointment [facility] [address] [place] [address] 08/31/2025 10:00 AM EST Office Visit [place] [facility] [address], [address] [place] [address] Eliezer Marrufo MD [address] [place] [address] Health Maintenance Due Date Last Done Comments [facility]-HIV Screening 1968 [facility]-Hepatitis C Screening 1968 [facility]-/Child/Adol SDOH Screenings 1968 [facility]- SDOH Screenings 1986 [...] 2013 Sigmoidoscopy 2013 [facility]-Colorectal Cancer Screening 2013 Lung Cancer Screening Shared Decision Making 2018 [id number] Vaccine (3 - Moderna risk series) 08/17/2021 [...] to Health Maintenance Insurance ANTHEM Care Teams Cardiovascular Surgical Tech Relationship Specialty Start Date End Date Anali Iverson APRN [address] [place] [address] PCP - General 03/03/24
--- OUTSIDE RECORDS SUMMARY | 2025-04-25 10:59 | XMS_ITS | Encounter Summary ---
Author Organization Healthcare Address [address] [place] [address] Care Team Providers Care Mathematical Statistician Name Role Phone Pcp, No Primary Care Provider Anali Mcdonough APRN Primary Care Provider [phone] Encounter Details Date Type Department Care Team (Late st Contact Info) Description 07/29/2023 Orders Only External Location [address] [place] [address] Provider, External Social History Tobacco Use Types [...] EST Appointment [facility] [address] [place] [address] 08/31/2025 10:00 AM EST Office Visit [place] [facility] [address], [address] [place] [address] Eliezer Marrufo MD [address] [place] [address] documented as of this encounter Procedures Procedure [...] documented as of this encounter Care Teams Mathematical Statistician Relationship Specialty Start Date End Date Pcp, [place] [address] PCP - General Family Medicine 01/14/24 03/02/24 Anali Iverson APRN [address] [place] [address] PCP - General 03/03/24 documented as of this encounter
[2025-04-25 11:23] LABS: Blood Urea Nitrogen 11 mg/dl (9-20); Creatinine,Serum 0.80 mg/dl (0.66-1.25); Estimated Glomerular Filt Rate 100 ml/min (>60); GFR (African American) 121 ML/MIN (>60)
== END 2025-04-25 23:59 | disposition home or self-care (01) ==
LOC: LAB 10:58
PROVIDERS: PCP Family Medicine; Visit Provider Family Medicine
DX: R51.9 Headache, unspecified (principal); Z82.49 Family history of ischemic heart disease and other diseases of the circulatory system; Z87.891 Personal history of nicotine dependence
CPT/HCPCS: 36415; 82565; 84520

== ENCOUNTER 2025-05-02 12:48 | Outpatient (CLI) | payer BC, SELFPAY ==
--- OUTSIDE RECORDS SUMMARY | 2025-05-02 12:58 | XMS_ITS | Encounter Summary ---
Author Organization Healthcare Address [address] [place] [address] Care Team Providers Care Buffet Attendant Name Role Phone Pcp, No Primary Care Provider Anali Mcdonough APRN Primary Care Provider [phone] Encounter Details Date Type Department Care Team (Late st Contact Info) Description 07/29/2023 Orders Only External Location [address] [place] [address] Provider, External Social History Tobacco Use Types [...] EST Appointment [facility] [address] [place] [address] 08/31/2025 10:00 AM EST Office Visit [place] [facility] [address], [address] [place] [address] Eliezer Marrufo MD [address] [place] [address] documented as of this encounter Procedures Procedure [...] documented as of this encounter Care Teams Buffet Attendant Relationship Specialty Start Date End Date Pcp, [place] [address] PCP - General Family Medicine 01/14/24 03/02/24 Anali Iverson APRN [address] [place] [address] PCP - General 03/03/24 documented as of this encounter
--- OUTSIDE RECORDS SUMMARY | 2025-05-02 12:58 | XMS_ITS | Clinical Summary ---
Author Organization [facility] Address [address] [place] [address] Care Team Providers Care Gunstock Repairer Name Role Phone Anali Iverson APRN Primary Care Provider [phone] Allergies Active Allergy Reactions Criticality Noted Date [...] Administration Dates Next Due Moderna COVID-19 Vaccine (Input Output Clerk) 12+ years ,05/24/2021 Family History Medical History [...] EST Appointment [facility] [address] [place] [address] 08/31/2025 10:00 AM EST Office Visit [place] [facility] [address] [place] [address] Eliezer Marrufo MD [address] [place] [address] Health Maintenance Due Date Last Done Comments [...] Lung Cancer Screening Shared Decision Making 2018 [id number] Vaccine (3 - Moderna risk series) 08/17/2021 [...] to Health Maintenance Insurance ANTHEM Care Teams Gunstock Repairer Relationship Specialty Start Date End Date Anali Iverson APRN [address] [place] [address] PCP - General 03/03/24
--- NOTE | 2025-05-02 13:00 | CT_ITS ---
FINAL REPORT TECHNIQUE: Axial images through the head was performed with and without contrast. Reformatted images were obtained and reviewed. This study was performed with techniques to keep radiation doses as low as reasonably achievable, (ALARA). Individualized dose reduction techniques using automated exposure control or adjustment of mA and/or kV according to the patient's size were employed. CLINICAL HISTORY: worseningheadaches COMPARISON: 02/19/2022 FINDINGS: There is no mass effect or midline shift. There is no hydrocephalus. There is no intracranial hemorrhage. The posterior fossa is without acute abnormality. The basilar cisterns are preserved. There is a mucous retention cyst or polyp in the right maxillary sinus, similar to prior. No acute osseous abnormality is identified. IMPRESSION: No acute intracranial abnormality. Reviewed, Interpreted and Dictated by Kamila Abraham MD Transcribed by Elsi Ruby Authenticated and [facility]
[2025-05-02] MEDS: SODIUM CHLORIDE 0.9% 10ML SYR (RAD ONLY) 10 ML IV (13:17)
[2025-05-02] MEDS: IOPAMIDOL-300 (61%) 100ML VIAL 100 ML IV (13:17)
== END 2025-05-02 23:59 | disposition home or self-care (01) ==
LOC: RAD 12:49
PROVIDERS: PCP Family Medicine; Visit Provider Family Medicine
DX: R51.9 Headache, unspecified (principal); Z82.49 Family history of ischemic heart disease and other diseases of the circulatory system; Z87.891 Personal history of nicotine dependence
CPT/HCPCS: 70470; Q9967

== ENCOUNTER 2025-06-15 14:47 | Outpatient (CLI) | payer BC, SELFPAY ==
--- OUTSIDE RECORDS SUMMARY | 2025-06-15 14:50 | XMS_ITS | Clinical Summary ---
Author Organization [facility] Address [address] [place] [address] Care Team Providers Care Microphone Operator Name Role Phone Anali Iverson APRN Primary Care Provider [phone] Allergies Active Allergy Reactions Criticality Noted Date [...] Administration Dates Next Due Moderna COVID-19 Vaccine (Supervisor Poultry Processing) 12+ years ,05/24/2021 Family History Medical History [...] EST Appointment [facility] [address] [place] [address] 08/31/2025 10:00 AM EST Office Visit [place] [facility] [address] [place] [address] Eliezer Marrufo MD [address] [place] [address] Health Maintenance Due Date Last Done Comments [...] Lung Cancer Screening Shared Decision Making 2018 [id number] Vaccine (3 - Moderna risk series) 08/17/2021 07/20/2021, 05/24/2021 [facility]-Influenza Vaccine (#1) 2025 [facility]-Depression Screening 09/01/2025 025, 09/01/2024 [facility]-Lung Cancer Screening 09/01/20252024, 01/14/2024 [facility]-Obesity Intervention Completed 025, 03/03/2024, 10/15/2023 HPV Vaccines (No Doses Required) Completed [facility]-HIB Vaccines Aged Out No longer e [...] to Health Maintenance Insurance ANTHEM Care Teams Microphone Operator Relationship Specialty Start Date End Date Anali Iverson APRN [address] [place] [address] PCP - General 03/03/24
--- OUTSIDE RECORDS SUMMARY | 2025-06-15 14:50 | XMS_ITS | Encounter Summary ---
Author Organization Healthcare Address [address] [place] [address] Care Team Providers Care Speed Reading Teacher Name Role Phone Pcp, No Primary Care Provider Anali Mcdonough APRN Primary Care Provider [phone] Encounter Details Date Type Department Care Team (Late st Contact Info) Description 07/29/2023 Orders Only External Location [address] [place] [address] Provider, External Social History Tobacco Use Types [...] EST Appointment [facility] [address] [place] [address] 08/31/2025 10:00 AM EST Office Visit [facility] [address] [place] [address] Eliezer Marrufo MD [address] [place] [address] documented as of this encounter Procedures Procedure [...] documented as of this encounter Care Teams Speed Reading Teacher Relationship Specialty Start Date End Date Pcp, Mihaela [address] [place] [address] PCP - General Family Medicine 01/14/24 03/02/24 Anali Iverson APRN [address] [place] [address] PCP - General 03/03/24 documented as of this encounter
--- NOTE | 2025-06-15 14:51 | XR_ITS ---
FINAL REPORT CLINICAL HISTORY: chest pain, cough, sob COMPARISON: 10/24/2024 FINDINGS: CHEST 2 VIEWS PA AND LATERAL The heart is normal in size. The mediastinum is unremarkable. The lungs are clear. Loop recorder device is seen in the left hemithorax. There is no pneumothorax. IMPRESSION: No acute process. Reviewed, Interpreted and Dictated by Edgar Miller MD Transcribed by Elsi Ruby Authenticated and [facility]
== END 2025-06-15 23:59 | disposition home or self-care (01) ==
LOC: RAD 14:48
PROVIDERS: PCP Student in an Organized Health Care Education/Training Program; Visit Provider Family Medicine
DX: R07.89 Other chest pain (principal); R09.89 Other specified symptoms and signs involving the circulatory and respiratory systems; R05.9 Cough, unspecified; Z95.818 Presence of other cardiac implants and grafts
CPT/HCPCS: 71046; 87070; 87205